=== PATIENT | female | born 1995 | race Caucasian/White ===

== ENCOUNTER 2020-03-29 17:56 | Outpatient (REF) | payer MEDICAID, SELFPAY ==
[2020-03-29 18:36] LABS: HCT 39.8 % (36.0-46.0); HGB 13.4 g/dL (11.2-15.7); MCH 29.6 pg (27.0-33.0); MCHC 33.7 % (32.0-36.0); MCV 87.9 fL (80-95); MPV 9.6 fL (8.0-11.0); Platelet Count 240 10^3/uL (130-400); RBC 4.53 10^6/uL (3.93-5.22); RDW 11.9 % (11.7-14.6); WBC 3.71 10^3/uL (4.4-10.8)
[2020-03-29 19:09] LABS: Ferritin 12 ng/mL (8-252)
== END 2020-03-29 18:16 ==
LOC: NCHCN 17:56
PROVIDERS: Visit Provider Family Medicine
DX: D50.9 Iron deficiency anemia, unspecified (principal)
CPT/HCPCS: 85027; 82728

== ENCOUNTER 2020-04-21 13:39 | Outpatient (REF) | payer MEDICAID, SELFPAY ==
[2020-04-25 17:31] LABS: SARS-CoV-2 RNA Undetected (Undetected); SARS-CoV-2 Specimen Source Nasal
== END 2020-04-21 13:59 ==
LOC: NCHCN 13:39
PROVIDERS: Visit Provider Physician Assistant
DX: Z11.59 Encounter for screening for other viral diseases (principal)
CPT/HCPCS: U0003

== ENCOUNTER 2020-10-15 04:32 | Outpatient (CLI) | payer MEDICAID, SELFPAY ==
--- NOTE | 2020-10-15 09:42 | DI.RAD_ITS ---
Exam(s) XR HIP RT COMPLETE AP PELVIS EXAM: XR HIP RT COMPLETE AP PELVIS CLINICAL HISTORY: RT HIP PAIN, M25.551,FAMILY H/O DYSPLASIA TECHNIQUE: COMPARISON: No exams were available for comparison FINDINGS: Three views were obtained. Cartilaginous joint spaces of the hips appear fairly well maintained. No bony or soft tissue abnormality seen. No evidence of hip dysplasia. IMPRESSION: RADIATION DOSE DELIVERED: Total DLP
== END 2020-10-15 04:52 ==
PROVIDERS: PCP Family Medicine; Visit Provider Family Medicine
DX: M25.551 Pain in right hip (principal); Z82.69 Family history of other diseases of the musculoskeletal system and connective tissue
CPT/HCPCS: 73502

== ENCOUNTER 2021-03-31 02:15 | Outpatient (CLI) | payer MEDICAID, SELFPAY ==
--- NOTE | 2021-03-31 08:00 | DI.RAD_ITS ---
Exam(s) RF JOINT INJECTION FLUORO GUID EXAM: RF JOINT INJECTION FLUORO GUID CLINICAL HISTORY: M25.851,FEMOROACETABULAR IMPINGEMENT RT HIP,FLUORO GUIDED INJECTION TECHNIQUE: Fluoroscopy provided. Radiologist not present. CONTRAST MATERIAL: None COMPARISON: No exams were available for comparison FINDINGS: Fluoroscopy was provided for Dr. Jett during right hip therapeutic injection. Submitted image(s) reveal needle placement at the lateral aspect femoral head. Intra-articular contr ast was injected Please refer to the procedure report for complete details. Cumulative Dose: brina Hand=1.3 mGy IMPRESSION: RADIATION DOSE DELIVERED:
[2021-03-31] MEDS: Bupivacaine 0.5% Pres-Free 10 ML VIAL 6 ML IJ (13:43)
[2021-03-31] MEDS: Omnipaque 300 MG/ML 10 ML BTL IJ (13:44)
[2021-03-31] MEDS: methylPREDNISolone ACETATE 80 MG/ML VIAL IM (13:45)
--- NOTE | 2021-03-31 13:50 | OPPNE_ITS ---
Date of service: 03/31/21 Time of Service: 13:19 Procedure Note Date of procedure: 03/31/21 Procedure: Right Hip Injection with Fluoroscopic Guidance Surgeon/Proceduralist/Physician: Torito Jett Procedure Diagnosis: Right Hip Labral Tear Procedure Indications: Sharon has had persistent pain of the RIGHT hip and groin with a diagnosed labral tear. Noninvasive measures have been tried. To serve as both diagnostic and therapeutic, an injection under fluoroscopy was recommended. I had discussed the risks of the procedure and the patient elected to proceed. Procedure Description: Sharon was greeted in the flouroscopy room. The correct side was identified and the consent was reviewed with the patient and signed. The corina ent was then placed in the supine position on the fluoroscopy table. The RIGHT hip was then prepped with Chloraprep. The anterolateral injection starting point was identiifed by bony landmarks and fluoroscopy. The skin and soft tissue in the tract of the injection was anesthetized with 1% Lidocaine. A spinal needle was then inserted deep into the hip joint at the level of the lateral femoral neck under fluoroscopic guidance. A small amount of Omnipaque solution was injected to confirm intraarticular placement. Once confirmed, the hip was injected with 6cc of 0.5% Bupivicaine and 80mg of Depo-Medrol. A bandaid was placed on the injection site. The procedure was tolerated well.
== END 2021-03-31 02:35 ==
PROVIDERS: PCP Family Medicine; Visit Provider Student in an Organized Health Care Education/Training Program
DX: M25.851 Other specified joint disorders, right hip (principal); M25.551 Pain in right hip; R10.31 Right lower quadrant pain
CPT/HCPCS: 20610; 77002; J1040

== ENCOUNTER 2021-04-01 03:15 | Outpatient (CLI) | payer MEDICAID, SELFPAY ==
[2021-04-01 10:51] LABS: Source Nasal/Nares
[2021-04-01 15:01] LABS: COVID-19 PCR Negative (Negative)
== END 2021-04-01 03:16 | disposition home or self-care (01) ==
PROVIDERS: PCP Family Medicine; Visit Provider Otolaryngology
DX: Z20.822 Contact with and (suspected) exposure to COVID-19 (principal); Z01.818 Encounter for other preprocedural examination
CPT/HCPCS: 87635

== ENCOUNTER 2021-04-04 08:23 | Day surgery (SDC) | payer MEDICAID, SELFPAY ==
[2021-04-04] VITALS (8 sets, daily range): BP systolic 115–129; BP diastolic 85–96; PULSE 58–70; RESP 12–16; TEMP 36–36.5; O2SAT 98–100; BMI 22.0
--- NOTE | 2021-04-04 08:33 | W.ANESPRE ---
General Info Date of Service Date Performed: 04/04/21 Height: 5 ft 8 in Weight: 65.771 kg Body Mass Index (BMI): 22.0 Surgical Procedure: Operation Date: 04/04/21 09:25 Proposed Procedures Side Surgeon p Tonsillectomy & Possible Adenoidectomy Ricky De León MD Meds Allergies and Home Medications Allergies Allergy/AdvReac Type Severity Reaction Status Date / Time No Known Allergies Allergy Verified 04/04/21 07:58 Home Medication Medication Instructions Recorded fluoxetine 40 mg capsule 40 mg PO DAILY cap 03/02/21 Current Visit Medications: Current Medications Generic Name Dose Route Start Last Admin Trade Name Freq PRN Reason Stop Dose Admin Dexamethasone 12 mg 04/04/21 06:00 Dexamethasone 10 Mg/Ml Vial IVP 04/04/21 18:00 NOW TEE Ringer's Solution 1,000 mls @ 80 mls/hr 04/04/21 06:00 IV 05/04/21 23:59 INFUSION TEE Cefazolin Sodium/Dextrose 2 gm in 50 mls @ 100 mls/hr 04/04/21 06:00 Ancef Duplex IVPB 05/04/21 23:59 PREOP TEE Tranexamic Acid 1,000 mg/ 60 mls @ 360 mls/hr 04/04/21 06:00 Sodium Chloride IVPB 04/04/21 18:00 PREOP TEE IV Miscellaneous Supplies 1 each 04/04/21 06:00 Iv Access IV 05/04/21 23:59 DIRECTED TEE Sodium Chloride 0 ml 04/04/21 06:00 Normal Saline Flush 10 Ml Syr IV 05/04/21 23:59 PRN PRN Sodium Chloride 0 ml 04/04/21 06:00 Normal Saline 10 Ml Vial IJ 05/04/21 23:59 DIRECTED PRN Sterile Water 0 ml 04/04/21 06:00 Water,Injection,Sterile 10 Ml Vial IJ 05/04/21 23:59 DIRECTED PRN PFSH Active Problems Active Problems: Problem Status Onset Code Halitosis R19.6 Tonsillolith J35.8 Chronic tonsillitis J35.01 Labral tear of right hip joint S73.191A 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 Hx of wisdom tooth extraction K08.409 Microcytic anemia D50.9 Generalized anxiety disorder F41.1 Tonsillar enlargement J35.1 Medical History Medical History Generalized anxiety disorder 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 Microcytic anemia Patellofemoral syndrome of left knee Tonsillar enlargement Surgical History Surgical History Hx of wisdom tooth extraction Tobacco Smoking/Tobacco Use Status: Never Alcohol Alcohol Intake: current Alcohol intake frequency: holidays/special occasions only Substance Use Substance use: Never Substance use type: marijuana Vital Signs and Lab Results Lab Results Blood Type / Crossmatch: No Data to Display Complete Blood Count: No Data to Display Complete Metabolic Panel: No Data to Display Liver Function Panel: No Data to Display Coagulation Panel: No Data to Display Cardiac Panel: No Data to Display Arterial Blood Gas: No Data to Display Venous Blood Gas: No Data to Display Pancreas Panel: No Data to Display Thyroid Panel: No Data to Display Infectious Disease: Coronavirus (COVID-19)(PCR) Negative (Negative) 04/01/21 09:37 04/01/21 Coronavirus 2019 Source Nasal/Nares 04/01/21 09:37 04/01/21 Blood Cultures: No Data to Display Toxicology Panel: No Data to Display Panel: No Data to Display Anesthesia Assessment and Plan Anesthesia History Personal History: No History of Anesthesia Complications Family History: No Family History of Anesthesia Complications Exercise Tolerance Exercise Tolerance: Metabolic Equivalents>4 Pertinent Negatives Pertinent Negatives: No Symptoms of GERD, No Major Cardiovascular Symptoms or Complaints, No Major Pulmonary Symptoms or Complaints and No History of CVA/TIA Cardiac & Pulmonary Exam Cardiac Exam: Normal S1/S2 Heart Sounds Pulmonary Exam: Clear Bilateral Breath Sounds Implantable Cardiac Device Does patient have a Pacemaker or an ICD?: No Airway Exam Known Difficult Airway: No Mallampati Class: 2 Mouth Opening: Normal (> 3cm) Thyromental Distance: Greater than 3 cm Neck Range of Motion: Full ROM Neck Circumference: Normal Teeth Condition: Normal Dentition ASA Classification ASA Score: ASA 2 Emergency Case?: No NPO Status NPO Status: NPO Clears >2 hours, Solids >8 hours Status Status: Negative HCG Anesthesia Plan Resuscitation Status: Full Code Anesthesia Technique: General Anesthesia Airway Planned: Endotracheal Tube Monitors Used: Standard Monitors
[2021-04-04] MEDS: Lactated Ringers 1,000 ML 80 ML IV (08:50)
[2021-04-04] MEDS: ceFAZolin 2 GM/50 ML BAG IVPB (09:15)
--- NOTE | 2021-04-04 09:33 | TONSIL_PTH ---
PATIENT: Sharon Miller LOC: [facility] U#:[id number] AGE/SX: 25/F ROOM: RE04/04/[address]: Ricky De León MD : 1995 BED: DIS: 04/04/2021 SPEC #: [id number] RECD: 04/04/21 12:28 STATUS: CAROLA REQ #: [id number] LAVERN: 04/04/21 09:[address]: Ricky De León DEPT: Surgical Specimen RECD BY: Allie Espinosa ENTERED: 04/04/21 12:28 SP TYPE: TONSIL OTHR DR: Andrei Vaz Tissues: 1 - TONSIL AGE 17 & OVER 2 - TONSIL AGE 17 & OVER Procedures: GROSS AND MICRO LEVEL 3 Comments: [id number]
--- NOTE | 2021-04-04 10:09 | W.PM.DSUDISC ---
Discharge Plan Disposition Patient Disposition: HOME Condition: Good Discharge Details Reason For Visit: TOnsillectomy Attending Provider: Ricky De León Primary Care Provider: Andrei Vaz Home Meds and New Rx's Prescriptions: No Action fluoxetine [Prozac] 40 mg capsule 40 mg PO DAILY RF: 0 Discharge Instructions Stand Alone Forms: ENT- T&A Instr. De León Referrals: Ricky De León MD [ [facility] STAFF PHYSICIAN] - (Follow-up in 1 month, please call office to schedule before patient departs) Diet:: As Tolerated Discharge Orders Discharge Orders: Discharge Order (Routine); Ordered 04/04/21 Ordered By: Ricky De León
--- NOTE | 2021-04-04 10:11 | ROE_ITS ---
Operative Note Operative Note DATE OF PROCEDURE: 04/04/21 PRE-OP DIAGNOSIS: Chronic tonsillitis with tonsillolith formation POST-OP DIAGNOSIS: same PROCEDURE: Tonsillectomy SURGEON: Ricky De León ANESTHESIA TYPE: General LMA/ETT Refer to Anesthesia Record ESTIMATED BLOOD LOSS: 50 PATHOLOGY: other (Tonsils) Patient was transported to: PACU Patient's condition: stable Indications: Patient with the above problems. Options were explained. She wished to proceed.. Consent was reviewed. H&P was reviewed. Narcotics were discussed, PDMP wasdone Findings: 3+ cryptic tonsils with copious cryptic debris, atrophic tonsils without debris. Palate intact to inspection and Procedure Description: After obtaining an adequate level of general endotracheal anesthesia the patient was positioned in the supine position and prepped and draped in appropriate fashion. Devin-Vikash mouthgag was carefully introduced into the oral cavity and opened to reveal the soft and hard palate, revealing no evidence of an occult cleft. Each tonsil was pulled medially and posteriorly and 0.5% Marcaine with 1-100,000 epinephrine injected in the submucosal plane. Adenoids were examined revealing no significant adenoid. With each tonsil pulled medially and posteriorly, the mucosa along the superior edge of the tonsil was incised using a 12 blade, and a Carmita elevator used to disarticulate the tonsil from the superior tonsillar fossa. Sanchez blade was then used to continue dissection down along the lateral aspect of the tonsil, staying close to the tonsillar capsule. Once the inferior pole it been reached, a tonsillar snare was placed around the base, and the tonsil amputated from the tonsillar fossa. Electrocautery suction tip catheter was then used on 15 W coagulation to achieve relative hemostasis. Devin-Vikash mouth gag was relaxed and reopened revealing no further bleeding. Valsalva did not induce bleeding. The Devin D mariana mouthgag was relaxed and removed and the patient was awakened and extubated by anesthesia and taken to recovery room in stable condition. I was present throughout the entire case
[2021-04-04] MEDS: HYDROmorphone 2 MG/ML VIAL IVP (10:35)
[2021-04-04] MEDS: Normal Saline 10 ML VIAL IJ (10:35)
--- NOTE | 2021-04-04 11:04 | W.ANESPOSTOP ---
Postoperative Evaluation Date, Time and Location Date Performed: 04/04/21 Time Performed: 11:05 Patient Location: Day Surgery Unit Vital Signs Most Recent Imported Vital Signs: Most Recent Vital Signs Temp Pulse Resp BP Pulse Ox 36.3 C L 58 L 12 121/87 98 04/04/21 10:50 04/04/21 10:50 04/04/21 10:50 04/04/21 10:50 04/04/21 10:50 Pain Score Most Recent Pain Score: Most Recent Pain Score Pain Level 5 04/04/21 10:50 Assessment Mental Status: Awake (Alert & Oriented to Patient Baseline) Airway and Respiratory Function: Patent airway with normal (patient baseline) respiratory exam Cardiovascular Function: Hemodynamically Stable Hydration Status: Adequately Hydrated Nausea & Vomiting: No Nausea or Vomiting Pain: Pain is tolerable per patient Peripheral Nerve Block: Patient did not receive a nerve block
== END 2021-04-04 12:11 | disposition home or self-care (01) ==
PROVIDERS: PCP Family Medicine; Visit Provider Otolaryngology
PROC: (CPT 42826; principal; 2021-04-04 09:15)
DX: J35.01 Chronic tonsillitis (principal); J35.8 Other chronic diseases of tonsils and adenoids; F41.1 Generalized anxiety disorder; D50.9 Iron deficiency anemia, unspecified
CPT/HCPCS: 42826; 81025; 88304; J0690; J1100; J2001; J2250; J2405; J2704

== ENCOUNTER 2021-06-08 18:54 | Outpatient (REF) | payer MEDICAID, SELFPAY ==
[2021-06-08 19:52] LABS: Iron 138 ug/dL (50-170); Total Iron Binding Capacity 374 ug/dL (250-450); Transferrin Sat 37 % (15-50)
[2021-06-08 20:05] LABS: Ferritin 24 ng/mL (8-252)
== END 2021-06-08 18:55 | disposition home or self-care (01) ==
LOC: LBN 18:54
PROVIDERS: PCP Family Medicine; Visit Provider Family Medicine
DX: D50.9 Iron deficiency anemia, unspecified (principal)
CPT/HCPCS: 82728; 83540; 83550

== ENCOUNTER 2021-08-30 08:14 | Outpatient (CLI) | payer MEDICAID, SELFPAY ==
--- NOTE | 2021-08-30 08:00 | DI.RAD_ITS ---
Exam(s) XR HIP LT AP LAT ONLY EXAM: XR HIP LT AP LAT ONLY CLINICAL HISTORY: left hip pain. TECHNIQUE: 2D digital imaging was performed of the left hip. Two views were obtained. AP and later al left hip views were obtained. COMPARISON: CR XR HIP RT COMPLETE AP PELVIS from 10/15/2020 FINDINGS: BONES: No acute fracture is present. No bony destructive lesion is seen. JOINTS: No dislocation present. SOFT TISSUE: Normal. IMPRESSION: Unremarkable radiographs of the left hip. DATA REPOSITORY: RADIATION DOSE DELIVERED:
== END 2021-08-30 08:15 | disposition home or self-care (01) ==
LOC: DIORS 08:15
PROVIDERS: PCP Family Medicine; Referring Provider Family Medicine; Visit Provider Student in an Organized Health Care Education/Training Program
DX: M25.552 Pain in left hip; M25.852 Other specified joint disorders, left hip
CPT/HCPCS: 73502

== ENCOUNTER 2021-11-23 01:36 | Outpatient (CLI) | payer MEDICAID, SELFPAY ==
[2021-11-23 12:20] LABS: Source Nasal/Nares
[2021-11-23 16:49] LABS: COVID-19 PCR Negative (Negative)
== END 2021-11-23 01:37 | disposition home or self-care (01) ==
LOC: LBO 01:37
PROVIDERS: PCP Family Medicine; Visit Provider Student in an Organized Health Care Education/Training Program
DX: Z20.822 Contact with and (suspected) exposure to COVID-19 (principal); Z01.818 Encounter for other preprocedural examination
CPT/HCPCS: 87635

== ENCOUNTER 2021-11-25 06:02 | Day surgery (SDC) | payer MEDICAID, SELFPAY ==
--- OUTSIDE RECORDS SUMMARY | 2021-11-25 06:04 | XMS_ITS | Encounter Summary ---
:1995 Author Organization [place] [address] Care Team Providers Name Role Phone Andrei Vaz MD Primary Care Provider Reason for Referral Diagnostic Test (Routine) - Authorized Specialty Diagnoses / Procedures Referred By Contact Refer red To Contact Radiology Diagnoses Hip impingement syndrome, right Shahriar Foote MD [facility] Rad Xray Procedures XR Fluoro Arthrogram Injection Hip Right [address] [facility] [place] [id number] Referral ID Status Reason Start Expiration Visits Visits Date Date Requested Authorized [id number] Authorized Specialty 12/23/2020 06/25/2022 2 2 Service Requested Reason for Visit Diagnostic Test (Routine) - Authorized Specialty Diagnoses / Procedures Referred By Contact Refer red To Contact Radiology Diagnoses Hip impingement syndrome, right Shahriar Foote MD [facility] Rad Xray Procedures XR Fluoro Arthrogram Injection Hip Right [address] [facility] [place] [id number] Referral ID Status Reason Start Expiration Visits Visits Date Date Requested Authorized [id number] Authorized Specialty 12/23/2020 06/25/2022 2 2 Service Requested Encounter Details Date Type Department Care Team Description 02/17/2021 [place] [facility] Foote, Hip impingement [address] [place] [address] Dr GAN syndrome, right [place], [place] [address] [phone] [facility] [phone] [place] [address] Social History Tobacco Use Types Packs/Day Years Used Date Never Assessed Sex Assigned at Date Recorded Not on file documented as of this encounter Discharge Instructions Patient InstructionsCharis Craft - 02/17/2021 1:30 PM EDT Post Injection Patient Instructions You received an injection by JAMEL HOLM in the diagnostic section of radiology. Procedure: RT HIP ARTHROGRAM In the days following the injection: ??? Low intensity movement and exercise of the affected joint. ??? Avoid movements that worsen pain. During the first 48 hours following the injection you may experience mild discomfort at the injection site. If you experience pain or discomfort in the affected area, do the following: ??? Apply cold compress to the affected area. ??? If allowed by your physician, take an anti-inflammatory medication such as ibuprofen (example: Advil), Acetaminophen 9example: Tylenol) or Aspirin. IMPORTANT The risk of infection exists whenever the skin is punctured. The risk can be minimized by keeping the injection site clean. However, be aware of the following signs of an infection: ??? Redness and swelling at the injection site. ??? Increased pain. ??? Fever and/or chills. ??? Decreased range of motion in the joint near the injection site. If you experience any of the signs of infection listed above, telephone the diagnostic section of radiology at [phone]. documented in this encounter Plan of Treatment Not on filedocumented as of this encounter Procedures Procedure Name Priority Date/Time Associated Diagnosis Comme nts XR FLUORO ARTHROGRAM Routine 02/17/2021 1:48 PM Hip impingemen t Results for this INJECTION HIP RIGHT EDT syndrome, right proce dure are in the results section. documented in this encounter Results XR Fluoro Arthrogram Injection Hip Right (02/17/2021 1:48 PM EDT) Anatomical Region Laterality Modality Hip Right Radio Fluoroscopy Specimen (Source) Anatomical Location Collection Method / Collectio n Time Received Time / Laterality Volume Impressions 02/21/2021 12:05 PM EDT Uneventful arthrogram Resident/Fellow: None Attending: None Procedure performed by DONNA Fierro RN Thank you for letting us participate in the care of this patient. ??If you are a health care provider and have any questi ons regarding this report, please contact the number below. ??For patients who have questions please contact the health acute care surgeon that requested your imaging first. ? Narrative 02/21/2021 12:05 PM EDT HISTORY: ??Labral tear, Impingement syndrome, right hip, iliotibial band syndrome., MR arthrogram of right hip bull int space. Arthrogram For Injection Of Contrast TECHNIQUE: After an extensive conversation with the patient regarding risks and benefits, oral and written consent were obtained.? A pre- procedural time-out was performed, including review of the patie nt's relevant electronic medical record and allergies, as [place] [facility] [place]. The patient was positioned supine on the fluoroscopic table. ??The skin overlying the right anterior hip was prepped and d raped in the usual aseptic manner. ??1% Lidocaine was used to achieve local anes thesia. ??Under fluoroscopic guidance, a 22 gauge 3.5 inch spinal needle was adva nced into the joint space. ??After confirmation of intra-articular location of needle tip by using a small injection of the contrast mixture, a tot al of 10 ml of the contrast mixture was injected. All needles removed at end of procedure. FINDINGS: 1. Contrast in right hip joint space 2. Additional post-contrast injection im ages were obtained in different projections. MEDICATIONS: Lidocaine 1% - <5 ml, for s ubcutaneous anesthesia CONTRAST: 20cc mixture of the following were prepa red: Dotarem- 0.2 ml in Normal Saline - 10ml Omnipaque 300 Utilized: 5 mL 1% Lidocaine - 5ml Only 10 ml of this mixture injected into joint space. FLUORO TIME: 0.83 minutes COMPLICATIONS: ??None immediate. POST-PROCEDURE CARE: Instructions regard ing monitor of infection and management of post-procedural pain were reviewed wi th the patient. Procedure Note Jamel Holm APRN - 02/21/2021Forma tting of this note might be different from the original. HISTORY: Labral tear, Impingement syndro me, right hip, iliotibial band syndrome., MR arthrogram of right hip bull int space. Arthrogram For Injection Of Contrast TECHNIQUE: After an extensive conversation with the patient regarding risks and benefits, oral and written consent were obtained.? A pre- procedural time-out was performed, including review of the patie nt's relevant electronic medical record and allergies, as [place] [facility] [place]. The patient was positioned supine on the fluoroscopic table. The skin overlying the right anterior hip was prepped and d raped in the usual aseptic manner. 1% Lidocaine was used to achieve local anes thesia. Under fluoroscopic guidance, a 22 gauge 3.5 inch spinal needle was adva nced into the joint space. After confirmation of intra-articular location of needle tip by using a small injection of the contrast mixture, a tot al of 10 ml of the contrast mixture was injected. All needles removed at end of procedure. FINDINGS: 1. Contrast in right hip joint space 2. Additional post-contrast injection im ages were obtained in different projections. MEDICATIONS: Lidocaine 1% - <5 ml, for s ubcutaneous anesthesia CONTRAST: 20cc mixture of the following were prepa red: Dotarem- 0.2 ml in Normal Saline - 10ml Omnipaque 300 Utilized: 5 mL 1% Lidocaine - 5ml Only 10 ml of this mixture injected into joint space. FLUORO TIME: 0.83 minutes COMPLICATIONS: None immediate. POST-PROCEDURE CARE: Instructions regard ing monitor of infection and management of post-procedural pain were reviewed wi th the patient. IMPRESSION Uneventful arthrogram Resident/Fellow: None Attending: None Procedure performed by DONNA Fierro RN Thank you for letting us participate in the care of this patient. If you are a health care provider and have any questi ons regarding this report, please contact the number below. For patients w ho have questions please contact the health acute care surgeon that requested your imaging first. Shahriar Foote MD IMG FLUORO ORDERABLES documented in this encounter Visit Diagnoses Diagnosis Hip impingement syndrome, right documented in this encounter Administered Medications Inactive Administered Medications - up to 3 most recent administrations Medication Order MAR Action Action Date Dose Rate Site sodium chloride 0.9% 10 mL with Given 02/17/2021 1:30 PM EDT lidocaine 10 mg/mL (1 %) 50 mg, iohexoL (300 mg/mL) 5 mL, gadoterate meglumine 0.5 mmol/mL (376.9 mg/mL) 0.2 mL injection Intra-articular, ONCE, 1 dose, On Margarita 02/17/21 at 1330 documented in this encounter Care Teams Rehabilitation Aide/Scheduler Relationship Specialty Start Date End Date Andrei Vaz MD PCP - General Family Medicine 01/20/21 [address] [place] [id number] documented as of this encounter
--- OUTSIDE RECORDS SUMMARY | 2021-11-25 06:04 | XMS_ITS | Encounter Summary ---
:1995 Author Organization [facility] [place] [address] Care Team Providers Name Role Phone Andrei Vaz MD Primary Care Provider Reason for Referral Diagnostic Test (Routine) - Closed Specialty Diagnoses / Procedures Referred By Contact Refer red To Contact Radiology Diagnoses Tear of left acetabular labrum, initial encounter Shahriar Foote MD [facility] Rad Mri Procedures MRI Arthrogram Hip Left [address] [place] [address] Referral ID Status Reason Start Date Expiration Date Visits V isits Requested Authorized [id number] Closed Specialty 08/31/2021 03/02/2023 1 1 Service Requested Reason for Visit Diagnostic Test (Routine) - Closed Specialty Diagnoses / Procedures Referred By Contact Refer red To Contact Radiology Diagnoses Tear of left acetabular labrum, initial encounter Shahriar Foote MD [facility] Rad Mri Procedures MRI Arthrogram Hip Left [address] [place] [phone] Referral ID Status Reason Start Date Expiration Date Visits V isits Requested Authorized [id number] Closed Specialty 08/31/2021 03/02/2023 1 1 Service Requested Encounter Details Date Type Department Care Team Description 2021 Hospital Encounter MRI at [facility] [place] Shahriar Foote, Tear of left [facility] acetabular labrum, Drive [address] initial encounter TAMIKO Hernadez [id number] [facility] MD [phone] Social History Tobacco Use Types Packs/Day Years Used Date Never Assessed Sex Assigned at Date Recorded Not on file documented as of this encounter Plan of Treatment Not on filedocumented as of this encounter Procedures Procedure Name Priority Date/Time Associated Comments Diagnosis MRI ARTHROGRAM HIP Routine 2021 10:40 AM Tear of left Re sults for this LEFT EDT acetabular labrum, procedure are in initial encounter the result s section. documented in this encounter Results MRI Arthrogram Hip Left (2021 10:40 AM EDT) Anatomical Region Laterality Modality Hip Left Magnetic Resonance Specimen (Source) Anatomical Location Collection Method / Collectio n Time Received Time / Laterality Volume Impressions 2021 10:57 AM EDT 1. ??Anterior superior labral tear characterized by heterogeneously increased signal and irregular morphology. 2. ??Decreased intensity in conspicuity of fluid signal adjacent to the bilateral greater trochanters. This could represen t resolving trochanteric bursitis and/or residual gluteal tendinosis. Thank you for letting us participate in the care of this patient. ??If you are a health care provider and have any questi ons regarding this report, please contact the number below. ??For patients who have questions please contact the health career center director that requested your imaging first. ? Electronically signed by: Adeline Verdin, [facility] ([phone]), at 2021 10:57 AM Narrative 2021 10:57 AM EDT EXAMINATION: MRI ARTHROGRAM HIP LEFT CLINICAL HISTORY: Labral tear, FELICITA (as entered by ordering provider in the order requisition) TECHNIQUE: MRI arthrogram of the left hip was perfo rmed after fluoroscopic guided injection of gadolinium-based contrast into the le ft hip joint space. Large field view sequences through the pelvis include cor onal T1, coronal STIR. Multiple view sequences through the left hip include c oronal T1 with fat saturation, coronal T2 with fat saturation, sagittal proton density with fat saturation, axial proton density with fat saturation, axia l oblique T1 with fat saturation. COMPARISON: Fluoroscopic images from the same day. M R the right hip 02/17/2021 FINDINGS: Right hip: No joint effusion. No acute f racture. Normal alignment. Large field view sequences limit evaluation of the c artilage in labrum. Left hip: No acute fracture. Left hip bull int space is distended by gadolinium-based contrast. There has bee n extravasation of contrast material along the joint capsule anteriorly. Ther e is heterogeneous signal and irregularity of the anterior superior la morris (series 5, image 14), suspicious for anterior-superior labral tear. No hi gh-grade cartilage loss is seen. Normal femoral head-neck offset. Alpha angle me asures less than 55 degrees. Other bones and joints: No acute fractur e. There is heterogeneous marrow signal, though the marrow of the pelvis remains brighter than adjacent muscle. Marrow the lumbar spine is slightly higher than adjacent muscle. These findings could represent red marrow conversion or hemat opoietic marrow. Overall, the heterogeneous marrow signal is similar w hen compared to MR of the right hip from 02/17/2021. Tendons and muscles: The origin of the h amstrings tendons is intact. No high-grade tear of the insertional glute al tendons. The insertional iliopsoas tendons are also intact. Symmetric bulk and signal the visualized muscles. Decreased conspicuity and intensity of f luid signal adjacent to the bilateral greater trochanters, though there is mil d persistence of the signal abnormality which could represent resolving trochant martin bursitis and/or residual gluteal tendinosis. Other soft tissues: Symmetric signal and caliber of the bilateral sciatic nerves. Limited evaluation of intrapelvic organs : Prominent follicles of the right ovary. There is a small amount of free f luid in the right adnexa, likely physiologic in this patient of reproduct gabby age. Procedure Note Ramya Mendez MD - 2021Formattin g of this note might be different from the original. EXAMINATION: MRI ARTHROGRAM HIP LEFT CLINICAL HISTORY: Labral tear, FELICITA (as entered by ordering provider in the order requisition) TECHNIQUE: MRI arthrogram of the left hip was perfo rmed after fluoroscopic guided injection of gadolinium-based contrast into the le ft hip joint space. Large field view sequences through the pelvis include cor onal T1, coronal STIR. Multiple view sequences through the left hip include c oronal T1 with fat saturation, coronal T2 with fat saturation, sagittal proton density with fat saturation, axial proton density with fat saturation, axia l oblique T1 with fat saturation. COMPARISON: Fluoroscopic images from the same day. M R the right hip 02/17/2021 FINDINGS: Right hip: No joint effusion. No acute f racture. Normal alignment. Large field view sequences limit evaluation of the c artilage in labrum. Left hip: No acute fracture. Left hip bull int space is distended by gadolinium-based contrast. There has bee n extravasation of contrast material along the joint capsule anteriorly. Ther e is heterogeneous signal and irregularity of the anterior superior la morris (series 5, image 14), suspicious for anterior-superior labral tear. No hi gh-grade cartilage loss is seen. Normal femoral head-neck offset. Alpha angle me asures less than 55 degrees. Other bones and joints: No acute fractur e. There is heterogeneous marrow signal, though the marrow of the pelvis remains brighter than adjacent muscle. Marrow the lumbar spine is slightly higher than adjacent muscle. These findings could represent red marrow conversion or hemat opoietic marrow. Overall, the heterogeneous marrow signal is similar w hen compared to MR of the right hip from 02/17/2021. Tendons and muscles: The origin of the h amstrings tendons is intact. No high-grade tear of the insertional glute al tendons. The insertional iliopsoas tendons are also intact. Symmetric bulk and signal the visualized muscles. Decreased conspicuity and intensity of f luid signal adjacent to the bilateral greater trochanters, though there is mil d persistence of the signal abnormality which could represent resolving trochant martin bursitis and/or residual gluteal tendinosis. Other soft tissues: Symmetric signal and caliber of the bilateral sciatic nerves. Limited evaluation of intrapelvic organs : Prominent follicles of the right ovary. There is a small amount of free f luid in the right adnexa, likely physiologic in this patient of reproduct gabby age. IMPRESSION 1. Anterior superior labral tear charact erized by heterogeneously increased signal and irregular morphology. 2. Decreased intensity in conspicuity of fluid signal adjacent to the bilateral greater trochanters. This could represen t resolving trochanteric bursitis and/or residual gluteal tendinosis. Thank you for letting us participate in the care of this patient. If you are a health care provider and have any questi ons regarding this report, please contact the number below. For patients w ho have questions please contact the health career center director that requested your imaging first. Electronically signed by: Adeline Verdin, [facility] ([phone]), at 2021 10:57 AM Shahriar Foote MD IMG MRI ORDERABLES documented in this encounter Visit Diagnoses Diagnosis Tear of left acetabular labrum, initial encounter documented in this encounter Care Teams Docent Coordinator Relationship Specialty Start Date End Date Andrei Vaz MD PCP - General Family Medicine 01/20/21 [address] [place] [phone] documented as of this encounter
--- OUTSIDE RECORDS SUMMARY | 2021-11-25 06:04 | XMS_ITS | Encounter Summary ---
:1995 Author Organization [facility] [address] Care Team Providers Name Role Phone Andrei Vaz MD Primary Care Provider Reason for Referral Diagnostic Test (Routine) - Closed Specialty Diagnoses / Procedures Referred By Contact Refer red To Contact Radiology Diagnoses Hip impingement syndrome, right Shahriar Foote MD [facility] Rad Mri Procedures MRI Arthrogram Hip Right [address] [place] [address] Referral ID Status Reason Start Date Expiration Date Visits V isits Requested Authorized [id number] Closed Specialty 12/23/2020 06/25/2022 1 1 Service Requested Reason for Visit Diagnostic Test (Routine) - Closed Specialty Diagnoses / Procedures Referred By Contact Refer red To Contact Radiology Diagnoses Hip impingement syndrome, right Shahriar Foote MD [facility] Rad Mri Procedures MRI Arthrogram Hip Right [address] [place] [address] Referral ID Status Reason Start Date Expiration Date Visits V isits Requested Authorized [id number] Closed Specialty 12/23/2020 06/25/2022 1 1 Service Requested Encounter Details Date Type Department Care Team Description 02/17/2021 Hospital Encounter MRI at [facility] Shahriar Foote, Hip impingement [facility] syndrome, right Drive [address] [facility] [address] [place] [phone] Social History Tobacco Use Types Packs/Day Years Used Date Never Assessed Sex Assigned at Date Recorded Not on file documented as of this encounter Plan of Treatment Not on filedocumented as of this encounter Procedures Procedure Name Priority Date/Time Associated Diagnosis Comme nts MRI ARTHROGRAM HIP Routine 02/17/2021 2:47 PM Hip impingement Results for this RIGHT EDT syndrome, right procedure ar e in the results section. documented in this encounter Results MRI Arthrogram Hip Right (02/17/2021 2:47 PM EDT) Anatomical Region Laterality Modality Hip Right Magnetic Resonance Specimen (Source) Anatomical Location Collection Method / Collectio n Time Received Time / Laterality Volume Impressions 02/17/2021 3:06 PM EDT 1. ??Cam morphology of the proximal right femur with loss of the normal femoral head-neck offset, predominantly along th e superior femoral head-neck junction. This finding may predispose to clinical symptoms of femoral acetabular impingement. 2. ??No discrete labral tear is identifi ed. 3. ??Bilateral early/mild trochanteric b ursitis. Thank you for letting us participate in the care of this patient. ??If you are a health care provider and have any questi ons regarding this report, please contact the number below. ??For patients who have questions please contact the health health care social worker that requested your imaging first. ? Electronically signed by: Adeline Verdin, [facility] ([phone]), at 02/17/2021 3:06 PM Narrative 02/17/2021 3:06 PM EDT EXAMINATION: MRI ARTHROGRAM HIP RIGHT CLINICAL HISTORY: R hip impingement syndrome. Iliotabial b and syndrome.; Labral tear. (as entered by ordering provider in the order requis ition) TECHNIQUE: MR arthrogram of the right hip was perfo rmed after intra-articular instillation of gadolinium-based contrast under fluor oscopic guidance. Large field view sequences through pelvis include coronal T1 and coronal STIR. Small xqzhh-wp-[id number] sequences through the righ t hip include coronal T1 with fat saturation, coronal T2 with fat saturati on, axial proton density with fat saturation, sagittal proton density with fat saturation, axial oblique T1 with fat saturation. COMPARISON: None FINDINGS: Right hip: There is gadolinium-based con trast opacifying the right hip joint space. The ligamentum teres is intact. T he alpha angle measures less than 55 degrees on the axial oblique view, but t here is loss of normal femoral head-neck offset along the superior femoral head n casey junction. No discrete labral tear is identified. No focal cartilage loss. Left hip: No joint effusion. Large field -of-view sequences limit evaluation of the cartilage and labrum. Other bones and joints: No acute fractur e. Somewhat heterogeneous marrow signal, without focal marrow replacing lesion. Tendons and muscles: Origins of the bila teral hamstrings tendons are intact. The insertions of the bilateral iliopsoas te ndons are intact. Insertions of the bilateral gluteal tendons are intact. Th ere is extravasation of contrast within the iliopsoas muscle. Amount of fluid adjacent to the bilatera l greater trochanters, consistent with mild bilateral trochanteric bursitis. Other soft tissues: Normal signal and ca liber of the bilateral sciatic nerves. Limited evaluation of intrapelvic organs : Dominant right ovarian follicle with adjacent pelvic free fluid. Procedure Note Ramya Mendez MD - 02/17/2021Formattin g of this note might be different from the original. EXAMINATION: MRI ARTHROGRAM HIP RIGHT CLINICAL HISTORY: R hip impingement syndrome. Iliotabial b and syndrome.; Labral tear. (as entered by ordering provider in the order requis ition) TECHNIQUE: MR arthrogram of the right hip was perfo rmed after intra-articular instillation of gadolinium-based contrast under fluor oscopic guidance. Large field view sequences through pelvis include coronal T1 and coronal STIR. Small xlsrf-cq-caxb sequences through the righ t hip include coronal T1 with fat saturation, coronal T2 with fat saturati on, axial proton density with fat saturation, sagittal proton density with fat saturation, axial oblique T1 with fat saturation. COMPARISON: None FINDINGS: Right hip: There is gadolinium-based con trast opacifying the right hip joint space. The ligamentum teres is intact. T he alpha angle measures less than 55 degrees on the axial oblique view, but t here is loss of normal femoral head-neck offset along the superior femoral head n casey junction. No discrete labral tear is identified. No focal cartilage loss. Left hip: No joint effusion. Large field -of-view sequences limit evaluation of the cartilage and labrum. Other bones and joints: No acute fractur e. Somewhat heterogeneous marrow signal, without focal marrow replacing lesion. Tendons and muscles: Origins of the bila teral hamstrings tendons are intact. The insertions of the bilateral iliopsoas te ndons are intact. Insertions of the bilateral gluteal tendons are intact. Th ere is extravasation of contrast within the iliopsoas muscle. Amount of fluid adjacent to the bilatera l greater trochanters, consistent with mild bilateral trochanteric bursitis. Other soft tissues: Normal signal and ca liber of the bilateral sciatic nerves. Limited evaluation of intrapelvic organs : Dominant right ovarian follicle with adjacent pelvic free fluid. IMPRESSION 1. Cam morphology of the proximal right femur with loss of the normal femoral head-neck offset, predominantly along th e superior femoral head-neck junction. This finding may predispose to clinical symptoms of femoral acetabular impingement. 2. No discrete labral tear is identified . 3. Bilateral early/mild trochanteric bur sitis. Thank you for letting us participate in the care of this patient. If you are a health care provider and have any questi ons regarding this report, please contact the number below. For patients w ho have questions please contact the health health care social worker that requested your imaging first. Electronically signed by: Adeline Verdin, [facility] ([phone]), at 02/17/2021 3:06 PM Shahriar Foote MD IMG MRI ORDERABLES documented in this encounter Visit Diagnoses Diagnosis Hip impingement syndrome, right documented in this encounter Care Teams Project Management Manager Relationship Specialty Start Date End Date Andrei Vaz MD PCP - General Family Medicine 01/20/21 [address] [place] [phone] documented as of this encounter
--- OUTSIDE RECORDS SUMMARY | 2021-11-25 06:04 | XMS_ITS | Encounter Summary ---
:1995 Author Organization [facility] [place] [address] Care Team Providers Name Role Phone Unavailable Primary Care Provider Unavailable Reason for Visit Diagnostic Test (Routine) - Closed Specialty Diagnoses / Procedures Referred By Contact Refer red To Contact Radiology Diagnoses Hip impingement syndrome, right Shahriar Foote MD [facility] Mri Procedures MRI Arthrogram Hip Right [address] [place] [address] Referral ID Status Reason Start Date Expiration Date Visits V isits Requested Authorized [id number] Closed Specialty 12/23/2020 06/25/2022 1 1 Service Requested Encounter Details Date Type Department Care Team Description 01/07/2021 Hospital Encounter MRI at [facility] [place] Shahriar Foote, Canceled [facility] ([address] [place] TIME) [facility] [address] [place], [place] [phone] [id number] Social History Tobacco Use Types Packs/Day Years [...] who have questions please contact the health nursing care partner that requested your imaging first. ? Narrative 02/17/2021 3:06 PM EDT EXAMINATION: MRI [...] include coronal T1 and coronal STIR. Small nsdns-pf-zjyz sequences through the righ t hip include [...] include coronal T1 and coronal STIR. Small krvmt-bh-gogj sequences through the righ t hip include [...] ho have questions please contact the health nursing care partner that requested your imaging first. Shahriar Foote MD IMG MRI ORDERABLES documented in this encounter Visit Diagnoses Not on filedocumented in this encounter
--- OUTSIDE RECORDS SUMMARY | 2021-11-25 06:04 | XMS_ITS | Encounter Summary ---
:1995 Author Organization [facility] [place] [address] Care Team Providers Name Role Phone Andrei Vaz MD Primary Care Provider Reason for Referral Diagnostic Test (Routine) - Closed Specialty Diagnoses / Procedures Referred By Contact Refer red To Contact Radiology Diagnoses Tear of left acetabular labrum, initial encounter Shahriar Foote MD [facility] Rad Xray Procedures XR Fluoro Arthrogram Injection Hip Left [address] [facility] [place] [id number] Referral ID Status Reason Start Date Expiration Date Visits V isits Requested Authorized [id number] Closed Specialty 08/31/2021 03/02/2023 1 1 Service Requested Reason for Visit Diagnostic Test (Routine) - Closed Specialty Diagnoses / Procedures Referred By Contact Refer red To Contact Radiology Diagnoses Tear of left acetabular labrum, initial encounter Shahriar Foote MD [facility]ray Procedures XR Fluoro Arthrogram Injection Hip Left [address] [facility] [place] [id number] Referral ID Status Reason Start Date Expiration Date Visits V isits Requested Authorized [id number] Closed Specialty 08/31/2021 03/02/2023 1 1 Service Requested Encounter Details Date Type Department Care Team Description 2021 Hospital Encounter XRay at [facility] Shahriar Foote, Tear of left [address] [place] [address] Dr GAN acetabular labrum, [place], [place] [address] initial encounter [id number] [facility] [phone] [place] [address] Social History Tobacco Use Types Packs/Day Years Used Date Never Assessed Sex Assigned at Date Recorded Not on file documented as of this encounter Discharge Instructions Patient InstructionsWeAudrey narayan - 2021 9:22 AM EDT Post Injection Patient Instructions You received an injection by Marta Garcia in the diagnostic section of radiology. Procedure: Left Hip Athrogram In the days following the injection: Low intensity movement and exercise of the affected joint. Avoid movements that worsen pain. During the first 48 hours following the injection you may experience mild discomfort at the injection site. If you experience pain or discomfort in the affected area, do the following: Apply cold compress to the affected area. If allowed by your physician, take an anti-inflammatory medication such as ibuprofen (example: Advil), Acetaminophen (example: Tylenol) or Aspirin. IMPORTANT The risk of infection exists whenever the skin is punctured. The risk can be minimized by keeping the injection site clean. However, be aware of the following signs of an infection: Redness and swelling at the injection site. Increased pain. Fever and/or chills. Decreased range of motion in the joint near the injection site. If you experience any of the signs of infection listed above, telephone the diagnostic section of radiology at [phone]. documented in this encounter Plan of Treatment Not on filedocumented as of this encounter Procedures Procedure Name Priority Date/Time Associated Comments Diagnosis XR FLUORO ARTHROGRAM Routine 2021 9:22 AM Tear of left R esults for this INJECTION HIP LEFT EDT acetabular labrum, pro cedure are in initial encounter the result s section. documented in this encounter Results XR Fluoro Arthrogram Injection Hip Left (2021 9:22 AM EDT) Anatomical Region Laterality Modality Hip Left Radio Fluoroscopy Specimen (Source) Anatomical Location Collection Method / Collectio n Time Received Time / Laterality Volume Impressions 2021 10:54 AM EDT Technically successful left femoral acetabular joint arthrogram Service Provider: ??Marta Garcia PA-C Attending of Record: Dr. Kristi Koo MD Preliminary report signed by: JENNIE Nolasco at 2021 9:37 AM I have personally reviewed the image(s) and the provider's interpretation and agree with the findings, Kristi Koo MD at 2021 10:54 AM Thank you for letting us participate in the care of this patient. ??If you are a health care provider and have any questi ons regarding this report, please contact the number below. ??For patients who have questions please contact the health lawn care professional that requested your imaging first. ? Electronically signed by: Kristi Koo MD, [facility] ([phone]), at 2021 10:54 AM Narrative 2021 10:54 AM EDT EXAMINATION: XR FLUORO ARTHROGRAM INJECTION FEMORAL ACETABULAR JOINT LEFT CLINICAL HISTORY: Labral tear, FELICITA TECHNIQUE: After an extensive conversation with the patient regarding risks and benefits, oral and written consent were obtained.? A pre-procedural time-out was performed, including review of the patie nt's relevant electronic medical record and allergies, as per [facility] protocol. The patient was positioned supine with t he left leg in internal rotation on the fluoroscopic table. ??The skin over the anterior left femoral acetabular joint was prepped and draped in the usual asep tic manner. ??1% Lidocaine was used to achieve local anesthesia. ??Under fluoro scopic guidance, a 22-gauge 3 1/2 inch spinal needle was advanced into the join t space. ??After confirmation of intra-articular location of needle tip b y using a small injection of the contrast mixture, a total of 10 ml of th e contrast mixture was injected. All needles removed at end of procedure. FINDINGS: 1. Contrast in left femoral acetabular j oint space 2. MEDICATIONS: Lidocaine 1% - <5 ml, for s ubcutaneous anesthesia CONTRAST: 20cc mixture of the following were prepa red: Dotarem- 0.2 ml (1:100 dilution) Normal Saline - 10ml Omnipaque 300 - 5 mL 1% Lidocaine - 5ml Only 10 ml of this mixture injected into joint space. FLUORO TIME: 0.13 seconds COMPLICATIONS: ??None immediate. POST-PROCEDURE CARE: Instructions regard ing monitor of infection and management of post-procedural pain were reviewed wi th the patient. Procedure Note Kristi Koo MD - 2021Formatt ing of this note might be different from the original. EXAMINATION: XR FLUORO ARTHROGRAM INJECT ION FEMORAL ACETABULAR JOINT LEFT CLINICAL HISTORY: Labral tear, FELICITA TECHNIQUE: After an extensive conversation with the patient regarding risks and benefits, oral and written consent were obtained.? A pre-procedural time-out was performed, including review of the patie nt's relevant electronic medical record and allergies, as per [facility] protocol. The patient was positioned supine with t he left leg in internal rotation on the fluoroscopic table. The skin over the an terior left femoral acetabular joint was prepped and draped in the usual asep tic manner. 1% Lidocaine was used to achieve local anesthesia. Under fluorosc opic guidance, a 22-gauge 3 1/2 inch spinal needle was advanced into the join t space. After confirmation of intra-articular location of needle tip b y using a small injection of the contrast mixture, a total of 10 ml of th e contrast mixture was injected. All needles removed at end of procedure. FINDINGS: 1. Contrast in left femoral acetabular j oint space 2. MEDICATIONS: Lidocaine 1% - <5 ml, for s ubcutaneous anesthesia CONTRAST: 20cc mixture of the following were prepa red: Dotarem- 0.2 ml (1:100 dilution) Normal Saline - 10ml Omnipaque 300 - 5 mL 1% Lidocaine - 5ml Only 10 ml of this mixture injected into joint space. FLUORO TIME: 0.13 seconds COMPLICATIONS: None immediate. POST-PROCEDURE CARE: Instructions regard ing monitor of infection and management of post-procedural pain were reviewed wi th the patient. IMPRESSION Technically successful left femoral acet abular joint arthrogram Service Provider: Marta Garcia PA-C Attending of Record: Dr. Kristi Koo MD Preliminary report signed by: JENNIE Nolasco at 2021 9:37 AM I have personally reviewed the image(s) and the provider's interpretation and agree with the findings, Kristi Koo MD at 2021 10:54 AM Thank you for letting us participate in the care of this patient. If you are a health care provider and have any questi ons regarding this report, please contact the number below. For patients w ho have questions please contact the health lawn care professional that requested your imaging first. Electronically signed by: Kristi Koo MD, [facility] ([phone]), at 2021 10:54 AM Shahriar Foote MD IMG FLUORO ORDERABLES documented in this encounter Visit Diagnoses Diagnosis Tear of left acetabular labrum, initial encounter documented in this encounter Administered Medications Inactive Administered Medications - up to 3 most recent administrations Medication Order MAR Action Action Date Dose Rate Site gadoterate meglumine (Dotarem) Given 2021 9:30 AM EDT 0.2 mLs (0.5 mMol/mL) injection solution 0-0.2 mL/kg/dose 0-0.2 mL/kg/dose, Intra-articular, ONCE, 1 dose, On Sun09/12/21 at 0930, Radiology Contrast, Routine iohexoL (Omnipaque) (300 mg/mL) solution 0-10 Given 9:24 AM EDT 5 mLs mL 0-10 mL, Intra-articular, ONCE, 1 dose, On Sun09/12/21 at 0930, Warning Vesicant/Irritant Medication , Radiology Contrast, Routine lidocaine (Xylocaine) 1% (10 mg/mL) injection Given 9:23 AM EDT 10 mLs 0-100 mg 0-100 mg (0-10 mL), Intra-articular, ONCE, 1 dose, On Sun09/12/21 at 0930, Radiology Protocol Medication, Routine documented in this encounter Care Teams Mechanical Service Technician Relationship Specialty Start Date End Date Andrei Vaz MD PCP - General Family Medicine 01/20/21 [address] [place] [id number] documented as of this encounter
--- OUTSIDE RECORDS SUMMARY | 2021-11-25 06:04 | XMS_ITS | Clinical Summary ---
:1995 Author Organization [facility] [address] Care Team Providers Name Role Phone Andrei Vaz MD Primary Care Provider Encounters Date Type Specialty Care Team Description 2021 Hospital Encounter Radiology Shahriar Foote MD Tear of left acetabular labrum, initial encounter 2021 Hospital Encounter Radiology Shahriar Foote MD Tear of left acetabular labrum, initial encounter 09/01/2021 Orders Only Radiology Marta Garcia PA from Last 3 Months Social History Tobacco Use Types Packs/Day Years Used Date Never Assessed Sex Assigned at Date Recorded Not on file Plan of Treatment Health Maintenance Due Date Last Done Comments Covid-19 Vaccine (#1) 09/13/1999 HIV screen 2012 Hepatitis C Screening 2012 Tdap adult 2013 Tetanus vaccine 2013 PAP Smear 09/13/2015 Influenza (Flu) vaccine (1 of 1 - Influenza standard 01/26/2021 series) Procedures Procedure Name Priority Date/Time Associated Comments Diagnosis MRI ARTHROGRAM HIP Routine 2021 10:40 AM Tear of left Re sults for this LEFT EDT acetabular labrum, procedure are in initial encounter the result s section. XR FLUORO ARTHROGRAM Routine 2021 9:22 AM Tear of left R esults for this INJECTION HIP LEFT EDT acetabular labrum, pro cedure are in initial encounter the result s section. ORDS - PROVIDER CARE 08/30/2021 12:00 AM SCAN EDT from Last 3 Months Results MRI Arthrogram Hip Left (2021 10:40 [...] who have questions please contact the health managed care provider that requested your imaging first. ? Electronically signed by: Adeline Verdin, [facility] ([phone]), at 2021 10:57 AM Narrative 2021 10:57 [...] ho have questions please contact the health managed care provider that requested your imaging first. Electronically signed by: Adeline Verdin, [facility] ([phone]), at 2021 10:57 AM Shahriar Foote MD IMG MRI ORDERABLES XR Fluoro Arthrogram Injection Hip Left (2021 [...] who have questions please contact the health managed care provider that requested your imaging first. ? Electronically signed by: Kristi Koo MD, [facility] ([phone]), at 2021 10:54 AM Narrative 2021 10:54 AM EDT EXAMINATION: XR FLUORO ARTHROGRAM INJECTION FEMORAL ACETABULAR JOINT LEFT CLINICAL HISTORY: Labral tear, FELICITA TECHNIQUE: After an extensive conversation with the patient regarding risks and benefits, oral and written consent were obtained.? A pre-procedural time-out was performed, including review of the patie nt's relevant electronic medical record and allergies, as per [facility] protocol. The patient was positioned supine with [...] electronic medical record and allergies, as per [facility] protocol. The patient was positioned supine with [...] femoral acet abular joint arthrogram Service Provider: KEITH MontesC Attending of Record: Dr. Kristi Koo MD [...] ho have questions please contact the health managed care provider that requested your imaging first. Electronically signed by: Kristi Koo MD, [facility] ([phone]), at 2021 10:54 AM Shahriar Foote MD IMG FLUORO ORDERABLES SCAN DOC: ORDS - PROVIDER CARE (08/30/2021 12:00 AM EDT) Narrative This result has an attachment that is no t available. Unknown MEDIA MGR SCAN EXT ORDR/RSLT from Last 3 Months Insurance Payer Benefit Plan / Subscriber ID Effective Dates Phone Addre ss Type Group [place]ID [place] [id number] 2020-Presen [phone] [address] [facility] t [address] [place], [place] PL[place] [address] Care Teams Upholstery Department Supervisor Relationship Specialty Start Date End Date Andrei Vaz MD PCP - General Family Medicine 01/20/21 [address] [place] [address]
--- OUTSIDE RECORDS SUMMARY | 2021-11-25 06:04 | XMS_ITS | Encounter Summary ---
:1995 Author Organization [facility] [place] [address] Care Team Providers Name Role Phone Andrei Vaz MD Primary Care Provider Encounter Details Date Type Department Care Team Description 09/01/2021 Orders Only Radiology at [facility] Marta Garcia PA [facility] [place] [address] MUSCULOSKELETAL [phone] RADIOLOGY [place], [place] [address] (Wo rk) Social History Tobacco Use Types Packs/Day Years Used Date Never Assessed Sex Assigned at Date Recorded Not on file documented as of this encounter Plan of Treatment Not on filedocumented as of this encounter Visit Diagnoses Not on filedocumented in this encounter Care Teams Maintenance Instructor Relationship Specialty Start Date End Date Andrei Vaz MD PCP - General Family Medicine 01/20/[address] [place] [phone] documented as of this encounter
--- OUTSIDE RECORDS SUMMARY | 2021-11-25 06:05 | XMS_ITS | Encounter Summary ---
:1995 Author Organization [facility] Address [address] [place] [address] Care Team Providers Name Role Phone Allie Bains MD Primary Care Provider Encounter Details Date Type Department Care Team Description 04/04/2021 Lab Requisition [facility] Ricky De León MD Encounter for other Pathology & HOSPITAL DR general examination Laboratory Medicine [facility] [id number] [place] [address] [place] [address] (Work) [phone] Social History Tobacco Use Types Packs/Day Years Used Date Never Smoker Alcohol Use Standard Drinks/Week Comments Yes 0 (1 standard drink = 0.6 oz pure alcoho l) occassiionally Alcohol Habits Answer Date Recorded How often do you have a drink containing alcohol? Not asked How many drinks containing alcohol do you have on a Not aske d typical day when you are drinking? How often do you have six or more drinks on one Not asked occasion? Comment: occassiionally 02/02/2011 Sex Assigned at Date Recorded Not on file documented as of this encounter Plan of Treatment Not on filedocumented as of this encounter Procedures Procedure Name Priority Date/Time Associated Diagnosis Comme nts SURGICAL PATHOLOGY Today 04/04/2021 9:33 EST Encounter for o ther Results for this general examination procedur e are in the results section. documented in this encounter Results SURGICAL PATHOLOGY (04/04/2021 9:33 EST) Note to Patient The following [facility] MEDICAL pathology results CENTER have been interpreted LABORATORY by your pathologist SERVICES and may be available to you before your health provider has had the opportunity to review them. Please allow time for your provider to receive these results and explore management options, if applicable. Final Diagnosis A. TONSIL, RIGHT, TONSILECTOMY: [facility] DICAL - Tonsil with reactive follicular hyperplasia. CENTER LABORATORY B. TONSIL, LEFT, TONSILECTOMY: SERVICES - Tonsil with reactive follicular hyperplasia. Attestation By the [facility], the attending CENTER signed by [facility] physician certifies LABORATORY Tamara Lamb MD on that they have 1) SERVICES 04/06/2021 at 1538 personally conducted a gross and/or microscopic examination of the described specimen(s), and/or personally interpreted the results of laboratory testing of the described specimen(s), and 2) personally rendered or confirmed the above diagnosis. Clinical History Chronic tonsillitis [facility] SERVICES Gross Description A. [facility] Received in formalin manisha d with proper patient identification (initials P, O) and right tonsil is an ovoid firm strickland palatine tonsil that measures 3.6 x 1.6 x 1.5 cm. The mucosa has prominent crypts CENTER but is otherwise light strickland and generally smooth. Sections reveal a slightly lobular cut surface with no discrete nodules. One union representative section is submitted as A1. LABORATORY SERVICES B. Received in formalin manisha d with proper patient identification (initials P, O) and left tonsil is an ovoid firm strickland palatine tonsil that measures 3.0 x 2.0 x 1.3 cm. The mucosa has prominent crypts but is otherwise light strickland a nd generally smooth. Sections reveal a slightly lobular cut surface with no discrete nodules. One union representative section is submitted as B1. JENNIE CARDONA(ASCP) 04/05/2021 9:33 Performing Lab [facility] HOSP[facility] LAB [facility] SERVICES Scanned Images [facility] Specimen Tissue - Specimen from tonsil (specimen) Tissue specimen (specimen) - Specimen fr om tonsil (specimen) Performing Organization Address City/State/ZIP Code Phon e Number [facility] [address] [place] [address] SERVICES documented in this encounter Visit Diagnoses Diagnosis Encounter for other general examination documented in this encounter Care Teams Fish Hatchery Specialist Relationship Specialty Start Date End Date Allei Bains MD PCP - General 02/02/11 [address] [place] [address] documented as of this encounter
--- OUTSIDE RECORDS SUMMARY | 2021-11-25 06:05 | XMS_ITS | Encounter Summary ---
:1995 Author Organization [facility] Address [address] [place] [address] Care Team Providers Name Role Phone Allie Bains MD Primary Care Provider Encounter Details Date Type Department Care Team Description 04/19/2005 Hospital Encounter [facility] Hospital MD [place] [address] [facility] [address] [place], [place] [address] [place] [phone] (Wo rk) Social History Tobacco Use Types [...] on filedocumented in this encounter Care Teams Customer Experience Intern Relationship Specialty Start Date End Date Allie Bains MD PCP - General 02/02/11 [address] [facility] [place] [address] documented as of this encounter
--- OUTSIDE RECORDS SUMMARY | 2021-11-25 06:05 | XMS_ITS | Clinical Summary ---
:1995 Author Organization [facility] Address [address] [place] [address] Care Team Providers Name Role Phone Allie Bains MD Primary Care Provider Allergies No known active allergies Medications Medication Sig Dispensed Refills Start Date End Date Status ibuprofen (MOTRIN) 200 Take 3 Tabs by 40 Tab 0 02/02/2011 Active mg tablet mouth every 8 hours as needed for Pain. Social History Tobacco Use Types Packs/Day Years [...] Assigned at Date Recorded Not on file Last Filed Vital Signs Vital Sign Reading Time Taken Comments Blood Pressure 110/68 02/02/20111941 EDT Pulse 68 02/02/20111941 EDT Temperature 37.8 ??C (100 ??F) 02/02/20111941 EDT Respiratory Rate 16 02/02/20111941 EDT Oxygen Saturation - - Inhaled Oxygen Concentration - - Weight - - Height - - Body Mass Index - - Plan of Treatment Health Maintenance Due Date Last Done Comments Hepatitis C Screen 1994 COVID-19 Vaccine (1) 2006 Insurance Payer Benefit Plan Subscriber ID Effective Phone Address Typ e / Group Dates MEDICAID ACO MEDICAID ACO [id number] 2021-Pres [phone] [address] Medicaid [place] [address] [place] [address] Care Teams Mental Telepathist Relationship Specialty Start Date End Date Allie Bains MD PCP - General 02/02/11 [address] [facility] [place] [address]
--- OUTSIDE RECORDS SUMMARY | 2021-11-25 06:05 | XMS_ITS | Encounter Summary ---
:1995 Author Organization [facility] Address [address] [place] [address] Care Team Providers Name Role Phone Allie Bains MD Primary Care Provider Encounter Details Date Type Department Care Team Description 06/30/2020 Lab Requisition [facility] Shaun Khan tact with and Pathology & O, PharmD (suspected) exposure Laboratory Medicine - [address] [facility] covid-19 [place], [place] [address] [facility] [address] [place], [place] [id number] Social History Tobacco Use Types Packs/Day Years [...] file documented as of this encounter Discharge Disposition Disposition Code Departure Means Destination Home or Self Care documented in this encounter Plan of Treatment Not on filedocumented as of this encounter Procedures Procedure Name Priority Date/Time Associated Diagnosis Comme nts COVID-19 ACOSTA TEST Today 06/30/2020 11:30 Contact with and R esults for this EST (suspected) exposure procedu re are in to covid-19 the results section. documented in this encounter Results COVID-19 ACOSTA TEST (06/30/2020 11:30 EST) SARS CoV-2 Nasal [facility] Specimen Source LABORATORIES Patient Race Unknown [facility] LABORATORIES Patient Unknown [facility] Ethnicity LABORATORIES SARS-CoV-2 RNA Undetected Undetected [facility] Result Comment: LABORATORIES SARS-CoV-2 RNA absent. This result does not rule out COVID-19 in the patient, as the sensitivity of the andrew t depends on the timing of the specimen collection and t he quality of the specimen. Result should be correlated w ith patient's history and clinical presentation. Method Summary SEE NOTE [facility] Comment: LABORATORIES THFSH- This PCR test uses the TaqPath COVID-19 Combo K it ([employer] and is performed on the [employer] magnetic particle processor and [employer] Fast Dx Real-Time PCR System. It has received Emergency Use Authorization (EUA) by the U.S. Food and Drug Administration. Performance characteristics w ere verified by [facility] in a manner consistent with CL [place] requirements. Fact sheets for this Emergency Use Authorization (EUA) can be found at the following links: https://www.fda.gov/media/516817/download for Health[facility] re Providers https://www.fda.gov/media/928043/download for Patients Test Performed by: [facility] [place] [id number] Hand Stemmer: José Salcedo M.D. Ph.D.; CLIA# [id number] Specimen Swab - Entire nasopharynx (body structur e) Performing Organization Address City/State/ZIP Code Phon e Number [facility]IES [address] [place] [address] documented in this encounter Visit Diagnoses Diagnosis Contact with and (suspected) exposure to covid-19 documented in this encounter Care Teams Radio Antenna Installer Relationship Specialty Start Date End Date Allie Bains MD PCP - General 02/02/11 [address] [place] [address] documented as of this encounter
--- OUTSIDE RECORDS SUMMARY | 2021-11-25 06:05 | XMS_ITS | Encounter Summary ---
:[address] [facility] Address [address] [place] [address] Care Team Providers Name Role Phone Unavailable Primary Care Provider Unavailable Encounter Details Date Type Department Care Team Description 04/24/2007 Before [facility] - José Beck V Converted Visit Raquel bateman Jr., MD ([place]) [id number] [place] [phone] (Wo rk) Social History Tobacco Use Types Packs/Day Years Used Date Never Assessed Sex Assigned at Date Recorded Not on file documented as of this encounter Consult Notes José Beck MD - 04/04/2009 0210 EST CONSULTATION - 04/24/2007 April 24, 2007 Allie Bains M.D. [facility] [address] [place] [address] Bains, [facility]. She plans to spend 2 months traveling through [facility], departing in June 2007. She is already well immunized having completed the yellow feverand hepatitis A virus immunization series. Her typhoid vaccine, however, has . We opted to give her a prescription for the oral typhoid vaccine. Additionally, she was given a prescription for mefloquine for malaria chemoprophylaxis, as her mother is concerned that she does not like to take medications and this will be the easiest way to provide her malaria chemoprophylaxis. Thank you for allowing me to see this patient. If you have any questions, please feel free to contact me at any time. Sincerely, Signed by José Beck MD 05/02/2007 13:18 José Beck MD Division of Pediatric Infectious Disease - José Beck MD A - vernell Job ID: [id number] Doc ID: [id number] cc: Allie Bains MD documented in this encounter Plan of Treatment Not on filedocumented as of this encounter Visit Diagnoses Not on filedocumented in this encounter
--- OUTSIDE RECORDS SUMMARY | 2021-11-25 06:05 | XMS_ITS | Encounter Summary ---
:1995 Author Organization [facility] Address [address] [place] [address] Care Team Providers Name Role Phone Allie Bains MD Primary Care Provider Encounter Details Date Type Department Care Team Description 06/23/2020 Lab Requisition [facility] Shaun Khan for Pathology & O, PharmD screening for Laboratory Medicine - [address] [facility] [place], [place] 111 [facility] [id number] [place], [place] [id number] Social History Tobacco Use Types Packs/Day Years [...] Diagnosis Comme nts COVID-19 ACOSTA TEST Today 06/23/2020 11:30 Encounter for Resu lts for this EST screening for procedure are in COVID-19 the results section. documented in this encounter Results COVID-19 ACOSTA TEST (06/23/2020 11:30 EST) SARS CoV-2 Nasopharynx [facility] Specimen Source LABORATORIES Patient Race Unknown [facility] LABORATORIES Patient Unknown [facility] Ethnicity LABORATORIES SARS-CoV-2 RNA Undetected Undetected [facility] Result Comment: LABORATORIES SARS-CoV-2 RNA absent. This result does not rule out COVID-19 in the patient, as the sensitivity of the andrew t depends on the timing of the specimen collection and t he quality of the specimen. Result should be correlated w ith patient's history and clinical presentation. Method Summary SEE NOTE [facility] Comment: LABORATORIES THFSH- This PCR test uses the TaqPath COVID-19 Combo K it ([employer] and is performed on the 1.[employer] Technology magnetic particle processor and Airphrame Fast Dx Real-Time PCR System. It has received Emergency Use Authorization (EUA) by the U.S. Food and Drug Administration. Performance characteristics w ere verified by [facility] in a manner consistent with CL IA requirements. Fact sheets for this Emergency Use Authorization (EUA) can be found at the following links: https://www.fda.gov/media/523208/download for Healthca re Providers https://www.fda.gov/media/017046/download for Patients Test Performed by: [facility] [place] [id number] Wharf Laborer: José Salcedo M.D. 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
--- OUTSIDE RECORDS SUMMARY | 2021-11-25 06:05 | XMS_ITS | Encounter Summary ---
:1995 Author Organization [facility] Address [address] [place] [address] Care Team Providers Name Role Phone Allie Bains MD Primary Care Provider Encounter Details Date Type Department Care Team Description 07/07/2020 Lab Requisition [facility] Shaun Khan tact with and Pathology & O, PharmD (suspected) exposure Laboratory Medicine [address] [facility] to other viral - [place], [place] communicable diseases [address] [facility] [address] [place], [place] [address] Social History Tobacco Use Types Packs/Day Years [...] Priority Date/Time Associated Diagnosis Comme nts COVID-19 TEST [facility] Today 07/07/2020 11:15 Contact with and LAB PCR EST (suspected) exposure to other viral communicable diseases COVID-19 TESTING Today 07/07/2020 11:15 Contact with and Res ults for this EST (suspected) exposure procedu re are in to other viral the results communicable diseases sectio n. documented in this encounter Results COVID-19 TEST [facility] PCR (07/07/2020 11:15 EST) Specimen Swab - Nasal (qualifier value) Performing Organization Address City/State/ZIP Code Phon e Number [facility] [address] [place] [address] SERVICES COVID-19 TESTING (07/07/2020 11:15 EST) COVID-19 rt-PCR Negative Negative [facility] Result Comment: CENTER LABORATORY This test has not been FDA c leared or approved. This test has been authorized by FDA under an EUA for use by authorized laboratories. This test has been authorized only for detection of nucleic acid fro SERVICES m 2019-nCoV, not for any oth er viruses or pathogens. This test is only authorized for the duration of the declaration that circumstances exist justifying the authorization of emergency use of in vitro d iagnostic tests for detectio n and/or diagnosis of 2019-nCoV under section 564(b)(1) of Act, 21 U.S.C ?? 360bbb-3(b) (1), unless the authorization is terminated or revoked sooner. Negative results do not prec lude 2019-nCoV infection and should not be used as the sole basis for treatment or other patient management decisions. Negative results must be combined with clinical observa tions, patient history, and epidemiological informatio n. This test was developed and its performance characteristics determined by [facility]. It has not been cleared or approved by the US Food and Drug Administration. FDA does not require this test to go through premarket FDA review. This t est is used for clinical purposes. It should not be regarded as investigational or for research. This laboratory is certified under the Clinical Laboratory Improvement Amendm ents (CLIA) as qualified to perform high complexity clinical laboratory testing. This test is based on the CD C COVID-19 Emergency Use Authorization (EUA) assay, with minor modification as defined by the FDA Performed on the [employer] Ino 7 Flex RT-PCR System. Performing Lab [facility] SERVICES Specimen Swab - Nasal (qualifier value) Performing Organization Address City/State/ZIP Code Phon e Number [facility] [address] [place] [address] SERVICES documented in this encounter Visit Diagnoses Diagnosis Contact with and (suspected) exposure to other viral communicable diseases documented in this encounter Care Teams Vocational Ed Instructor Relationship Specialty Start Date End Date Allie Bains MD PCP - General 02/02/11 [address] [facility] [address] documented as of this encounter
--- OUTSIDE RECORDS SUMMARY | 2021-11-25 06:05 | XMS_ITS | Encounter Summary ---
:1995 Author Organization [facility] Address [address] [place] [address] Care Team Providers Name Role Phone Norberto Adame MD Primary Care Provider Reason for Visit Reason Comments Pharyngitis Encounter Details Date Type Department Care Team Description 02/02/2011 Hospital Encounter [facility] Belinda Calabrese MD [address] [place] [address] Sore throat; Urgent Care - Yashira Martinez, Provider, Viral syndrome [address] [id number] Social History Tobacco Use Types Packs/Day Years [...] on file documented as of this encounter Last Filed Vital Signs Vital Sign Reading Time Taken Comments Blood Pressure 110/68 02/02/20111941 EDT Pulse 68 02/02/20111941 EDT Temperature 37.8 ??C (100 ??F) 02/02/20111941 EDT Respiratory Rate 16 02/02/20111941 EDT Oxygen Saturation - - Inhaled Oxygen Concentration - - Weight - - Height - - Body Mass Index - - documented in this encounter Discharge Instructions AttachmentsThe following attachments cannot be sent through Care Everywhere.SORE THROAT IN ADULTS: AFTER YOUR VISIT (EQUATORIAL GUINEAN)documented in this encounter Medications at Time of Discharge Medication Sig Dispensed Refills Start Date End Date ibuprofen (MOTRIN) 200 mg Take 3 Tabs by mouth 40 Tab 0 02/02/2011 tablet every 8 hours as needed for Pain. documented as of this encounter Ordered Prescriptions Prescription Sig Dispensed Refills Start Date End Date ibuprofen (MOTRIN) 200 mg Take 3 Tabs by mouth 40 Tab 0 02/02/2011 tablet every 8 hours as needed for Pain. documented in this encounter Discharge Disposition Disposition Code Departure Means Destination Home or Self Care documented in this encounter ED Notes Braxton Calabrese Ying - 02/03/2011 1101 EDT DOS: 02/02/2011 Chief Complaint Patient presents with ??? Pharyngitis The patient is a 15 y.o. female who presents today with Pharyngitis HPI Comments: This pleasant young woman presents accompanied by her mother, who is a nurse practitioner student. Patient has sore throat and fever as outlined below. No personal or significant family history of seasonal allergies or reactive airway disease. The history is provided by the patient, a parent and medical records. Pharyngitis This is a new problem. The current episode started yesterday. The problem has been gradually worsening. The maximum temperature recorded prior to her arrival was 100 to 100.9 F. The fever has been present for less than 1 day. Associated symptoms include swollen glands and trouble swallowing. Pertinentnegatives include no diarrhea, no vomiting, no congestion, no ear discharge, no ear pain, no headaches, no plugged ear sensation, no shortness of breath, no stridor, no stiff neck and no cough. She hashad no exposure to strep or mono. Exposure to: patient is public school.. She has tried NSAIDs for the symptoms. The treatment provided moderate relief. Review of Systems Constitutional: Positive for fever and fatigue. Negative for unexpected weight change. HENT: Positive for sore throat and trouble swallowing. Negative for ear pain, congestion, rhinorrhea, voice change, sinus pressure and ear discharge. Eyes: Negative. Respiratory: Negative for cough, shortness of breath and stridor. Cardiovascular: Negative. Gastrointestinal: Negative for vomiting, abdominal pain, diarrhea and abdominal distention. Genitourinary: Negative. Musculoskeletal: Negative. Skin: Negative. Negative for rash. Neurological: Negative for dizziness, light-headedness and headaches. Hematological: Positive for adenopathy. Does not bruise/bleed easily. Psychiatric/Behavioral: Negative. No current facility-administered medications on file. Current outpatient prescriptions Medication Sig Dispense Refill ??? ibuprofen (MOTRIN) 200 mg tablet Take 3 Tabs by mouth every 8 hours as needed for Pain. 40 Tab 0 No Known Allergies History reviewed. No pertinent past medical history. History Substance Use Topics ??? Smoking status: Never Smoker ??? Smokeless tobacco: Not on file ??? Alcohol Use: Yes occassiionally History reviewed. No pertinent family history. BP 110/68 Pulse 68 Temp(Src) 100 ??F (37.8 ??C) (Temporal) Resp 16 Physical Exam Nursing note and vitals reviewed. Constitutional: She is oriented to person, place, and time. She appears well- developed and well-nourished. No distress. HENT: Head: Normocephalic and atraumatic. Right Ear: Hearing, tympanic membrane, external ear and ear canal normal. Left Ear: Hearing, tympanic membrane, external ear and ear canal normal. Nose: Nose normal. Right sinus exhibits no maxillary sinus tenderness and no frontal sinus tenderness. Left sinus exhibits no maxillary sinus tenderness and no frontal sinus tenderness. Mouth/Throat: Uvula is midline and mucous membranes are normal. Posterior oropharyngeal edema and posterior oropharyngeal erythema present. No oropharyngeal exudate or tonsillar abscesses. Eyes: Conjunctivae and extraocular motions are normal. Pupils are equal, round, and reactive to light. No scleral icterus. Neck: Normal range of motion. Neck supple. Thyromegaly present. Cardiovascular: Normal rate, regular rhythm and normal heart sounds. No murmur heard. Pulmonary/Chest: Effort normal and breath sounds normal. Abdominal: Soft. Bowel sounds are normal. Musculoskeletal: She exhibits no edema. Lymphadenopathy: She has no cervical adenopathy. Neurological: She is alert and oriented to person, place, and time. She exhibits normal muscle tone.Coordination normal. Skin: Skin is warm and dry. No rash noted. She is not diaphoretic. Psychiatric: She has a normal mood and affect. Her behavior is normal. Judgment and thought content normal. Consult orders: None PCP: NORBERTO ADAME MD Results for orders placed during the hospital encounter of 02/02/11 RAPID STREP Component Value Range ??? Rapid Strep A Screen Value: Neg Performed at [facility], [place], [place] Radiology orders: None Procedures Course: A medical screening exam was performed. Check throat culture. Discussed my impression as well as differential diagnosis. Continue supportive care. We will call ifculture comes back positive. Followup with primary care provider if not resolving over the next 5-7 days, sooner if worsening. Disposition: Discharged The patient's pain was managed to an adequate level weighing risk vs. benefit of further medications. Upon departure from the [facility], the patient's pain was 5 on a zero to ten scale. Condition at departure from the [facility]: Stable 1. Sore throat (462AA) RAPID STREP, PHARYNGITIS CULTURE, RAPID STREP, PHARYNGITIS CULTURE 2. Viral syndrome (079.99B) No supervision required. [facility] 02/03/2011 11:01 Tess Metzger - 02/02/2011 194 EDT Patient said her throat has been sore since yesterday. documented in this encounter Miscellaneous Notes Scanned Note-Null - Bluing Oven Tender, Scan - 02/02/2011 0000 EDT Scanned Note-Null - Bluing Oven Tender, Scan - 02/02/2011 0000 EDT documented in this encounter Plan of Treatment Not on filedocumented as of this encounter Procedures Procedure Name Priority Date/Time Associated Diagnosis Comme nts GROUP A STREP STAT 02/02/2011 19:45 Sore throat Results fo r this CULTURE EDT procedure are i n the results section. RAPID STREP STAT 02/02/2011 19:45 Sore throat Results for this EDT procedure are i n the results section. documented in this encounter Results PHARYNGITIS CULTURE (02/02/2011 19:45 EDT) Pathologist [facility] Throat [facility] Description Performed at [facility], [place], [place] LAB Result No group A beta [facility] streptococci LAB isolated. Usual trevon-pharyngeal ariel. Report Status Final [facility] 02/04/2011 LAB Specimen Other (qualifier value) Performing Organization Address City/State/ZIP Code Phon e Number [facility] [address] [place] [address] SERVICES [facility] [address] [place] [address] RAPID STREP (02/02/2011 19:45 EDT) Rapid Strep A Neg [facility] LAB Screen Performed at [place], [place] Specimen Other (qualifier value) Performing Organization Address City/State/ZIP Code Phon e Number [facility] [address] [place] [address] SERVICES [facility] [address] [place] [address] documented in this encounter Visit Diagnoses Diagnosis Sore throat Acute pharyngitis Viral syndrome Unspecified viral infection, in conditio ns classified elsewhere and of unspecified site documented in this encounter Care Teams Laborer [employer] Relationship Specialty Start Date End Date Norberto Adame MD PCP - General 02/02/11 [address] [place] [facility] [place] [address] documented as of this encounter
[2021-11-25 06:23] VITALS: BP 106/77; PULSE 62; RESP 16; TEMP 36.6; O2SAT 100
--- NOTE | 2021-11-25 06:34 | W.ANESPRE ---
General Info Date of Service Date Performed: 11/25/21 Height: 5 ft 8 in Weight: 65.4 kg Body Mass Index (BMI): 21.9 Surgical Procedure: Operation Date: 11/25/21 07:50 Proposed Procedure Side Surgeon p Hip Arthroscopy w/Labral Repair and Femoroplasty Left Shahriar Foote MD Meds Allergies and Home Medications Allergies Allergy/AdvReac Type Severity Reaction Status Date / Time No Known Allergies Allergy Verified 11/25/21 06:28 Home Medication Medication Instructions Recorded Lactobacillus acidophilus 10 10,000 mmu cells PO DAILY 11/25/21 billion cell capsule (Probiotic) multivitamin 1 tab PO DAILY 11/25/21 Current Visit Medications: Current Medications Generic Name Dose Route Start Last Admin Trade Name Freq PRN Reason Stop Dose Admin Ringer's Solution 1,000 mls @ 100 mls/hr 11/25/21 06:00 IV 12/24/21 23:59 INFUSION TEE Cefazolin Sodium/Dextrose 2 gm in 50 mls @ 100 mls/hr 11/25/21 06:00 Ancef Duplex IVPB 11/25/21 16:00 PREOP TEE IV Miscellaneous Supplies 1 each 11/25/21 06:00 Iv Access IV 12/24/21 23:59 DIRECTED TEE Sodium Chloride 0 ml 11/25/21 06:00 Normal Saline Flush 10 Ml Syr IV 12/24/21 23:59 PRN PRN Sodium Chloride 0 ml 11/25/21 06:00 Normal Saline 10 Ml Vial IJ 12/24/21 23:59 DIRECTED PRN Sterile Water 0 ml 11/25/21 06:00 Water,Injection,Sterile 10 Ml Vial IJ 12/24/21 23:59 DIRECTED PRN PFSH Active Problems Active Problems: Problem Status Onset Code Labral tear of left hip joint S73.192A Sacroiliac joint pain M53.3 Labral tear of right hip joint S73.191A 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 Medical History Medical History Chronic tonsillitis Generalized anxiety disorder Halitosis 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 Microcytic anemia Patellofemoral syndrome of left knee Tonsillar enlargement Tonsillolith Surgical History Surgical History Hx of tonsillectomy 04/04/2021 Hx of wisdom tooth extraction Tobacco Smoking/Tobacco Use Status: Never Alcohol Alcohol Intake: never Substance Use Substance use: Rarely Substance use type: marijuana Vital Signs and Lab Results Vital Signs Most Recent Vital Signs in EMR: Most Recent Vital Signs Temp Pulse Resp BP Pulse Ox 36.6 C 62 16 106/77 100 11/25/21 06:23 11/25/21 06:23 11/25/21 06:23 11/25/21 06:23 11/25/21 06:23 Lab Results Blood Type / Crossmatch: No Data to Display Complete Blood Count: No Data to Display Complete Metabolic Panel: No Data to Display Liver Function Panel: No Data to Display Coagulation Panel: No Data to Display Cardiac Panel: No Data to Display Arterial Blood Gas: No Data to Display Venous Blood Gas: No Data to Display Pancreas Panel: No Data to Display Thyroid Panel: No Data to Display Infectious Disease: Coronavirus (COVID-19)(PCR) Negative (Negative) 11/23/21 09:02 Coronavirus 2019 Source Nasal/Nares 11/23/21 09:02 Blood Cultures: No Data to Display Toxicology Panel: No Data to Display Panel: No Data to Display Anesthesia Assessment and Plan Anesthesia History Personal History: No History of Anesthesia Complications Family History: No Family History of Anesthesia Complications Exercise Tolerance Exercise Tolerance: Metabolic Equivalents>4 Pertinent Negatives Pertinent Negatives: No Symptoms of GERD, No Major Cardiovascular Symptoms or Complaints, No Major Pulmonary Symptoms or Complaints and No History of CVA/TIA Cardiac & Pulmonary Exam Cardiac Exam: Normal S1/S2 Heart Sounds Pulmonary Exam: Clear Bilateral Breath Sounds Implantable Cardiac Device Does patient have a Pacemaker or an ICD?: No Airway Exam Known Difficult Airway: No Mallampati Class: 2 Mouth Opening: Normal (> 3cm) Thyromental Distance: Greater than 3 cm Neck Range of Motion: Full ROM Neck Circumference: Normal Teeth Condition: Normal Dentition ASA Classification ASA Score: ASA 2 Emergency Case?: No NPO Status NPO Status: NPO Clears >2 hours, Solids >8 hours Status Status: Negative HCG Anesthesia Plan Resuscitation Status: Full Code Anesthesia Technique: General Anesthesia Airway Planned: Endotracheal Tube Pain Management: Surgeon and patient request nerve block (BRIDGETTE) Monitors Used: Standard Monitors
[2021-11-25] MEDS: Lactated Ringers 1,000 ML 100 ML IV (07:08)
[2021-11-25 07:58] LABS: HCG Quant, Pregnancy 5708 mIU/mL (1-3)
--- NOTE | 2021-11-25 08:09 | PDOC.ANES ---
Date of service: 11/25/21 Time of Service: 08:09 Anesthesia Note Report Anesthesia Note: Made aware of positive qualitative HCG for this patient at 0659 this morning, discussed with Anders Camilo. Placed order for serum HCG, notified Willy Foote and consulted with Abdirahman Hendrix from the MEDICAL ASSISTANT PER DIEM service. In consultation with Abdirahman Hendrix it was her direct recommendation to postpone this elective surgery. Discussed with patient and family member, they expressed their wish to proceed. I recommended further discussion and awaiting serum HCG results. I further discussed case with Abdirahman Hendrix and Eileen Darnell, both of the same service, and they both reinforced that this elective case should be postponed until the current process is finalized. Serum HCG was >5000. I discussed the recommendations by our consulting providers with the patient and informed her that we are postponing the case. She expressed her disappointment. I gave her and her family member time to process and ask questions. All questions answered to the best of my ability. I referred the patient to [facility] or her prior provider to follow up on the potential pregnancys process. Once the process has finalized I invited her to reschedule her surgery and we will be more than happy to get that done for her in the future.
--- NOTE | 2021-11-25 08:31 | W.PM.DSUDISC ---
Discharge Plan Disposition Patient Disposition: HOME Condition: Stable Discharge Details Reason For Visit: Left hip surgery Attending Provider: Shahriar Foote Primary Care Provider: Andrei Vaz Home Meds and New Rx's Prescriptions: Continued multivitamin Tablet 1 tab PO DAILY Probiotic 10 billion cell Capsule 10,000 mmu cells PO DAILY Discharge Instructions Additional Instructions: Left hip arthroscopy postponed today due to possible continued after . Please see plate grinder Dr. Rosita Darnell next week to review options. My office will tentatively plan on surgery with me on 12/09/21. Referrals: Rosita Darnell DO [OSTEOPATHIC DOCTOR] - (Positive test after ) Shahriar Foote MD [ [facility]FF PHYSICIAN] - DS: Diagnosis Discharge Diagnosis (1) Labral tear of left hip joint: Status: Acute (2) Positive test: Status: Acute
== END 2021-11-25 06:03 | disposition home or self-care (01) ==
PROVIDERS: Nurse Anesthetist, Certified Registered; PCP Family Medicine; Visit Provider Student in an Organized Health Care Education/Training Program
DX: S73.192A Other sprain of left hip, initial encounter (principal); Z32.01 Encounter for pregnancy test, result positive; Z53.09 Procedure and treatment not carried out because of other contraindication; X58.XXXA Exposure to other specified factors, initial encounter
CPT/HCPCS: 29916; 29914; 36415; 84702; J0171; J1100; J2405; J2704

== ENCOUNTER 2021-12-01 19:09 | Outpatient (CLI) | payer MEDICAID, SELFPAY ==
[2021-12-01 14:07] LABS: HCG Quant, Pregnancy 13362 mIU/mL (1-3)
== END 2021-12-01 19:10 | disposition home or self-care (01) ==
LOC: LBO 19:10
PROVIDERS: PCP Family Medicine; Visit Provider Obstetrics & Gynecology
DX: Z32.01 Encounter for pregnancy test, result positive (principal); Z64.0 Problems related to unwanted pregnancy
CPT/HCPCS: 36415; 84702

== ENCOUNTER 2021-12-05 03:33 | Outpatient (CLI) | payer MEDICAID, SELFPAY ==
[2021-12-05 15:50] LABS: Source Nasal/Nares
[2021-12-05 16:18] LABS: Abs Immature Grans 0.01 10^3/uL (0.0-0.06); Absolute Basophil Count 0.03 10^3/uL (0.0-0.2); Absolute Eosinophil Count 0.07 10^3/uL (0.0-0.7); Absolute Lymphocyte Count 1.77 10^3/uL (1.2-3.4); Absolute Monocyte Count 0.35 10^3/uL (0.1-0.8); Absolute Neutrophil Count 2.61 10^3/uL (1.2-6.7); Basophils % 0.6; Eosinophils % 1.4; HGB 12.4 g/dL (11.2-15.7); Immature Grans % 0.2; Lymphocytes % 36.6; MCH 28.6 pg (27.0-33.0); MCHC 34.4 % (32.0-36.0); MCV 83 fL (80-95); MPV 9.2 fL (8.0-11.0); Monocytes % 7.2; Platelet Count 204 10^3/uL (130-400); RBC 4.33 10^6/uL (3.93-5.22); RDW 11.3 % (11.7-14.6); RDW-SD 34.5 fL; WBC 4.84 10^3/uL (4.4-10.8)
[2021-12-05 20:59] LABS: COVID-19 PCR Negative (Negative)
== END 2021-12-05 03:34 | disposition home or self-care (01) ==
LOC: LBO 03:33
PROVIDERS: PCP Family Medicine; Visit Provider Obstetrics & Gynecology
DX: O03.4 Incomplete spontaneous abortion without complication; Z20.822 Contact with and (suspected) exposure to COVID-19; Z01.812 Encounter for preprocedural laboratory examination; Z01.818 Encounter for other preprocedural examination
CPT/HCPCS: 36415; 86850; 86900; 86901; 87635; 85025

== ENCOUNTER 2021-12-05 03:34 | Outpatient (CLI) | payer MEDICAID, SELFPAY | END 2021-12-05 03:35 | disposition home or self-care (01) | LOC: LBO 03:34 | PROVIDERS: PCP Family Medicine; Visit Provider Obstetrics & Gynecology ==

== ENCOUNTER 2021-12-07 08:00 | Day surgery (SDC) | payer MEDICAID, SELFPAY ==
[2021-12-07 08:15] VITALS: BP 103/75; PULSE 68; RESP 18; TEMP 36.6; O2SAT 99
[2021-12-07] MEDS: DOXYCYCLINE 100 MG in Normal Saline 100 ML IVPB (08:35)
[2021-12-07] MEDS: Lactated Ringers 1,000 ML 125 ML IV (08:35)
--- NOTE | 2021-12-07 09:01 | W.ANESPRE ---
General Info Date of Service Date Performed: 12/07/21 Height: 5 ft 8 in Weight: 64.3 kg Body Mass Index (BMI): 21.5 Surgical Procedure: Operation Date: 12/07/21 10:25 Proposed Procedure Side Surgeon p D & C Suction Completion Rosita Darnell DO Meds Allergies and Home Medications Allergies Allergy/AdvReac Type Severity Reaction Status Date / Time No Known Allergies Allergy Verified 12/07/21 08:14 Home Medication Medication Instructions Recorded Lactobacillus acidophilus 10 10,000 mmu cells PO DAILY 11/25/21 billion cell capsule (Probiotic) multivitamin 1 tab PO DAILY 11/25/21 Current Visit Medications: Current Medications Generic Name Dose Route Start Last Admin Trade Name Freq PRN Reason Stop Dose Admin Ringer's Solution 1,000 mls @ 125 mls/hr 12/07/21 06:00 12/07/21 08:35 IV 01/05/22 23:59 125 mls/hr INFUSION TEE Administration Doxycycline Hyclate 100 mg/ 100 mls @ 100 mls/hr 12/07/21 06:00 12/07/21 08:35 Sodium Chloride IVPB 12/07/21 23:59 100 mls/hr PREOP TEE Administration IV Miscellaneous Supplies 1 each 12/07/21 06:00 Iv Access IV 01/05/22 23:59 DIRECTED TEE Sodium Chloride 0 ml 12/07/21 06:00 Normal Saline Flush 10 Ml Syr IV 01/05/22 23:59 PRN PRN Sodium Chloride 0 ml 12/07/21 06:00 Normal Saline 10 Ml Vial IJ 01/05/22 23:59 DIRECTED PRN Sterile Water 0 ml 12/07/21 06:00 Water,Injection,Sterile 10 Ml Vial IJ 01/05/22 23:59 DIRECTED PRN PFSH Active Problems Active Problems: Problem Status Onset Code Positive test Z32.01 Labral tear of left hip joint S73.192A Sacroiliac joint pain M53.3 Labral tear of right hip joint S73.191A 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 Medical History Medical History Chronic tonsillitis Generalized anxiety disorder Halitosis 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 Microcytic anemia Patellofemoral syndrome of left knee Tonsillar enlargement Tonsillolith Surgical History Surgical History Hx of tonsillectomy 04/04/2021 Hx of wisdom tooth extraction Tobacco Smoking/Tobacco Use Status: Never Alcohol Alcohol Intake: never Substance Use Substance use: Rarely Substance use type: marijuana Vital Signs and Lab Results Vital Signs Most Recent Vital Signs in EMR: Most Recent Vital Signs Temp Pulse Resp BP Pulse Ox 36.6 C 68 18 103/75 99 12/07/21 08:15 12/07/21 08:15 12/07/21 08:15 12/07/21 08:15 12/07/21 08:15 Lab Results Blood Type / Crossmatch: Patient ABO/Rh A Positive 12/05/21 Antibody Screen NEGATIVE 12/05/21 Complete Blood Count: White Blood Count 4.84 10^3/uL (4.4-10.8) 12/05/21 15:50 Red Blood Count 4.33 10^6/uL (3.93-5.22) 12/05/21 15:50 Hemoglobin 12.4 g/dL (11.2-15.7) 12/05/21 15:50 Hematocrit 36.0 % (36.0-46.0) 12/05/21 15:50 Platelet Count 204 10^3/uL (130-400) 12/05/21 15:50 Complete Metabolic Panel: No Data to Display Liver Function Panel: No Data to Display Coagulation Panel: No Data to Display Cardiac Panel: No Data to Display Arterial Blood Gas: No Data to Display Venous Blood Gas: No Data to Display Pancreas Panel: No Data to Display Thyroid Panel: No Data to Display Infectious Disease: Coronavirus (COVID-19)(PCR) Negative (Negative) 12/05/21 15:40 Coronavirus 2019 Source Nasal/Nares 12/05/21 15:40 Blood Cultures: No Data to Display Toxicology Panel: No Data to Display Panel: Beta HCG, Quantitative 43020 mIU/mL (1-3) H 12/01/21 13:25 Anesthesia Assessment and Plan Anesthesia History Personal History: No History of Anesthesia Complications Family History: No Family History of Anesthesia Complications Exercise Tolerance Exercise Tolerance: Metabolic Equivalents>4 Pertinent Negatives Pertinent Negatives: No Symptoms of GERD, No Major Cardiovascular Symptoms or Complaints, No Major Pulmonary Symptoms or Complaints and No History of CVA/TIA Cardiac & Pulmonary Exam Cardiac Exam: Normal S1/S2 Heart Sounds Pulmonary Exam: Clear Bilateral Breath Sounds Implantable Cardiac Device Does patient have a Pacemaker or an ICD?: No Airway Exam Known Difficult Airway: No Mallampati Class: 2 Mouth Opening: Normal (> 3cm) Thyromental Distance: Greater than 3 cm Neck Range of Motion: Full ROM Neck Circumference: Normal Teeth Condition: Normal Dentition ASA Classification ASA Score: ASA 1 Emergency Case?: No NPO Status NPO Status: NPO Clears >2 hours, Solids >8 hours Status Status: Confirmed and Positive HCG Anesthesia Plan Resuscitation Status: Full Code Anesthesia Technique: General Anesthesia Airway Planned: Natural Airway Monitors Used: Standard Monitors
[2021-12-07 09:08] VITALS: BMI 21.5
--- NOTE | 2021-12-07 09:50 | POCSPONT_PTH ---
PATIENT: Sharon Miller LOC: [facility] U#:[id number] AGE/SX: 26/F ROOM: RE12/07/[address]: Rosita Darnell DO : 1995 BED: DIS: 12/07/2021 SPEC #: [id number] RECD: 12/07/21 12:43 STATUS: CAROLA REQ #: [id number] LAVERN: 12/07/21 09:[address]: Rosita Darnell DEPT: Surgical Specimen RECD BY: Allie Espinosa ENTERED: 12/07/21 12:44 SP TYPE: POCSPONT OTHR DR: Andrei Vaz Tissues: 1 - ,SPONTANEOUS Procedures: GROSS AND MICRO LEVEL 4 Comments: [id number]
[2021-12-07 10:00] VITALS: BP 134/100; PULSE 108; RESP 14; TEMP 36.5; O2SAT 96
--- NOTE | 2021-12-07 10:02 | W.PM.OP ---
Date of service: 12/07/21 Time of Service: 10:02 Operative Note Operative Note DATE OF PROCEDURE: 12/07/21 PRE-OP DIAGNOSIS: Incomplete miscarriage POST-OP DIAGNOSIS: same PROCEDURE: Dilation and curettage with suction SURGEON: Rosita Darnell ANESTHESIA TYPE: General:No Airway Refer to Anesthesia Record ESTIMATED BLOOD LOSS: 50 COMPLICATIONS: None Patient was transported to: same day Patient's condition: stable Implants: None Indications: Incomplete miscarriage Findings: Moderate products of conception Procedure Description: Patient was taken the operating suite with IV running after full informed consent was obtained. She was placed in the dorsal supine position and anesthesia administered with ease. She was then placed in the modified dorsolithotomy position and prepped and draped in usual sterile fashion. Her bladder had been previously drained prior to arrival in the OR. Pneumatic compression stockings were placed for DVT prophylaxis. Exam under anesthesia revealed a uterus that was midline and mobile, approximately 6 to 8 weeks size. Speculum was inserted into the vaginal vault and a single-tooth tenaculum used to grasp the anterior lip of the cervix. With gentle dilation, cervical os dilated to the point that a 7 Icelandic curved suction catheter could be passed with ease. With gentle suction curettage, moderate products of conception were returned. At this point the suction curette was removed and a gentle sharp curettage was performed of the endometrial cavity to the point that the coarse cry of the uterus could be felt in all 4 quadrants. A second pass with the suction curette was performed for scant tissue return. At this point, the procedure was terminated, tenaculum removed from the anterior lip of the cervix and puncture sites were hemostatic. Speculum was removed. Exam under anesthesia revealed a uterus that was small, mobile, midline and hemostatic. At this point patient was returned to the dorsal supine position and awoke from anesthesia with ease. She was taken to the same-day surgical area in stable condition. Complications: None apparent Findings: Small to moderate tissue within the endometrial cavity EBL: 50 mL Fluids: Crystalloid per anesthesia Pathology: Products of conception for examination.
[2021-12-07 10:35] VITALS: BP 130/86; PULSE 84; RESP 18; TEMP 36.6; O2SAT 100
--- NOTE | 2021-12-07 12:19 | W.ANESPOSTOP ---
Postoperative Evaluation Date, Time and Location Date Performed: 12/07/21 Time Performed: 10:15 Patient Location: Day Surgery Unit Vital Signs Most Recent Imported Vital Signs: Most Recent Vital Signs Temp Pulse Resp BP Pulse Ox 36.6 C 84 18 130/86 100 12/07/21 10:35 12/07/21 10:35 12/07/21 10:35 12/07/21 10:35 12/07/21 10:35 Pain Score Most Recent Pain Score: Most Recent Pain Score Pain Level 1 12/07/21 10:35 Assessment Mental Status: Awake (Alert & Oriented to Patient Baseline) Airway and Respiratory Function: Patent airway with normal (patient baseline) respiratory exam Cardiovascular Function: Hemodynamically Stable Hydration Status: Adequately Hydrated Nausea & Vomiting: No Nausea or Vomiting Pain: Pt. Denies Any Pain Peripheral Nerve Block: Patient did not receive a nerve block
== END 2021-12-07 11:05 | disposition home or self-care (01) ==
PROVIDERS: PCP Family Medicine; Visit Provider Obstetrics & Gynecology
PROC: (CPT 59841; principal; 2021-12-07 10:15)
DX: O03.4 Incomplete spontaneous abortion without complication (principal); Z3A.01 Less than 8 weeks gestation of pregnancy; D50.9 Iron deficiency anemia, unspecified
CPT/HCPCS: 59812; 88305; J1100; J1885; J2405

== ENCOUNTER 2022-01-25 02:24 | Outpatient (CLI) | payer MEDICAID, SELFPAY ==
[2022-01-25 12:26] LABS: Source Nasal/Nares
[2022-01-25 14:49] LABS: COVID-19 PCR Negative (Negative)
== END 2022-01-25 02:25 | disposition home or self-care (01) ==
LOC: LBO 02:24
PROVIDERS: PCP Family Medicine; Visit Provider Student in an Organized Health Care Education/Training Program
DX: Z20.822 Contact with and (suspected) exposure to COVID-19 (principal); Z01.818 Encounter for other preprocedural examination
CPT/HCPCS: 87635

== ENCOUNTER 2022-01-27 06:19 | Day surgery (SDC) | payer MEDICAID, SELFPAY ==
[2022-01-27] VITALS (9 sets, daily range): BP systolic 90–116; BP diastolic 46–87; PULSE 52–79; RESP 15–19; TEMP 36.1–36.6; O2SAT 97–100; BMI 23.1
--- NOTE | 2022-01-27 06:08 | W.ANESPRE ---
General Info Date of Service Date Performed: 01/27/22 Height: 5 ft 7.5 in Weight: 68.039 kg Body Mass Index (BMI): 23.1 Surgical Procedure: Operation Date: 01/27/22 07:50 Proposed Procedure Side Surgeon p Hip Arthroscopy w/Labral Repair and Femoroplasty Left Shahriar Foote MD Meds Allergies and Home Medications Allergies Allergy/AdvReac Type Severity Reaction Status Date / Time No Known Allergies Allergy Verified 01/27/22 06:43 Home Medication Medication Instructions Recorded Lactobacillus acidophilus 10 10,000 mmu cells PO DAILY 11/25/21 billion cell capsule (Probiotic) multivitamin 1 tab PO DAILY 11/25/21 aspirin 81 mg tablet,delayed 81 mg PO DAILY Prevent blood clot 01/27/22 release 14 days #14 tabs naproxen 250 mg tablet 250 - 500 mg PO BID PRN #40 tabs 01/27/22 oxycodone 5 mg tablet 5 - 10 mg PO Q4H PRN moderate to 01/27/22 severe pain #18 tabs Current Visit Medications: Current Medications Generic Name Dose Route Start Last Admin Trade Name Freq PRN Reason Stop Dose Admin Ringer's Solution 1,000 mls @ 100 mls/hr 01/27/22 06:00 IV 01/27/22 16:00 INFUSION TEE Cefazolin Sodium/Dextrose 2 gm in 50 mls @ 100 mls/hr 01/27/22 06:00 Ancef Duplex IVPB 01/27/22 16:00 PREOP TEE IV Miscellaneous Supplies 1 each 01/27/22 06:00 Iv Access IV 01/27/22 16:00 DIRECTED TEE Sodium Chloride 0 ml 01/27/22 06:00 Normal Saline Flush 10 Ml Syr IV 01/27/22 16:00 PRN PRN Sodium Chloride 0 ml 01/27/22 06:00 Normal Saline 10 Ml Vial IJ 01/27/22 16:00 DIRECTED PRN Sterile Water 0 ml 01/27/22 06:00 Water,Injection,Sterile 10 Ml Vial IJ 01/27/22 16:00 DIRECTED PRN PFSH Active Problems Active Problems: Problem Status Onset Code Femoroacetabular impingement of right hip M25.851 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 states medical Hx of tonsillectomy 04/04/2021 Hx of wisdom tooth extraction Tobacco Smoking/Tobacco Use Status: Never Alcohol Alcohol Intake: never Substance Use Substance use: Rarely Substance use type: marijuana Vital Signs and Lab Results Vital Signs Most Recent Vital Signs in EMR: Temp Pulse Resp BP Pulse Ox 36.6 C 66 16 116/87 99 01/27/22 06:46 01/27/22 06:46 01/27/22 06:46 01/27/22 06:46 01/27/22 06:46 Lab Results Blood Type / Crossmatch: No Data to Display Complete Blood Count: No Data to Display Complete Metabolic Panel: No Data to Display Liver Function Panel: No Data to Display Coagulation Panel: No Data to Display Cardiac Panel: No Data to Display Arterial Blood Gas: No Data to Display Venous Blood Gas: No Data to Display Pancreas Panel: No Data to Display Thyroid Panel: No Data to Display Infectious Disease: Coronavirus (COVID-19)(PCR) Negative (Negative) 01/25/22 08:30 Coronavirus 2019 Source Nasal/Nares 01/25/22 08:30 Blood Cultures: No Data to Display Toxicology Panel: No Data to Display Panel: No Data to Display Anesthesia Assessment and Plan Anesthesia History Personal History: No History of Anesthesia Complications Family History: No Family History of Anesthesia Complications Exercise Tolerance Exercise Tolerance: Metabolic Equivalents>4 Cardiac & Pulmonary Exam Cardiac Exam: Normal S1/S2 Heart Sounds Pulmonary Exam: Clear Bilateral Breath Sounds Implantable Cardiac Device Does patient have a Pacemaker or an ICD?: No Airway Exam Known Difficult Airway: No Mallampati Class: 2 Mouth Opening: Normal (> 3cm) Thyromental Distance: Greater than 3 cm Neck Range of Motion: Full ROM Neck Circumference: Normal Teeth Condition: Normal Dentition ASA Classification ASA Score: ASA 2 Emergency Case?: No NPO Status NPO Status: NPO Clears >2 hours, Solids >8 hours Status Status: Negative HCG Anesthesia Plan Resuscitation Status: Full Code Anesthesia Technique: General Anesthesia Airway Planned: Endotracheal Tube Pain Management: Surgeon and patient request nerve block Monitors Used: Standard Monitors Preoperative Comments:: 26 yo female for hip scope. Sig PMHx: anxiety, never smoker, occ cannabis. Previous meneses 2, grade 2a Plan BRIDGETTE GHOSH. Discussed risks, benefits of BRIDGETTE and potential risk (but not limited to) of quad weakness and nerve injury.
[2022-01-27] MEDS: Lactated Ringers 1,000 ML 100 ML IV (07:20)
[2022-01-27] MEDS: ceFAZolin 2 GM/50 ML BAG IVPB (07:52)
--- NOTE | 2022-01-27 08:00 | W.PM.OP ---
Operative Note Operative Note DATE OF PROCEDURE: 01/27/22 PRE-OP DIAGNOSIS: Right hip 1. Labral tear 2. Femoracetabular impingement POST-OP DIAGNOSIS: same PROCEDURE: Right hip 1. Arthroscopic labral debridement, CPT# 32041 2. Arthroscopic femoroplasty, CPT# 17155 SURGEON: Shahriar Foote PROVIDER RELATIONS MANAGER: Kirk Delvalle ANESTHESIA TYPE: Local By Surgeon, General LMA/ETT and Primary Nerve Block (BRIDGETTE) Refer to Anesthesia Record ESTIMATED BLOOD LOSS: 5 COMPLICATIONS: None Patient was transported to: PACU Patient's condition: stable Implants: None Indications: Please see complete medical record for details. Procedure Description: In the operating room, general and regional anesthesia were induced. The patient was positioned supine on the Mcandrews table. All bony prominences were well-padded. Preoperative antibiotics were administered. The correct patient, procedure, and side of the procedure were all verified prior to incision. 20 cc of 0.25% bupivacaine containing epinephrine was infiltrated about the planned portal sites. Fluoroscopically, an anterolateral portal was established with hip under about 1 cm distraction. Traction start time as noted. Through the spinal needle, a nitinol wire was inserted and the needle removed. An 11 blade was used to create a portal sized incision about the Nitinol wire. A small 4 mm dilator was passed atraumatically over the nitinol wire through the capsule into the hip joint. The nitinol wire was removed. A 6 mm dilator was then passed over the smaller one into the hip joint and the initial dilator removed. The blunt end of a switching stick was then passed into the hip joint and the last dilator removed. The camera sleeve was then inserted over the switching stick, the switching stick removed, and the arthroscope attached to the camera sleeve. An initial dry arthroscopy of the hip joint confirmed appropriate viewing portal location about the equator laterally. Using a combination of fluoroscopic guidance and arthroscopic triangulation a modified mid anterior portal was established in a similar fashion with a spinal needle and sequential dilators. Care was taken to ensure the portal was in an appropriate position and outside the labrum. A banana blade was inserted anteriorly over half pipe. The capsule was released distal to the labrum working towards the anterolateral portal. The camera was then switched to the anterior portal, the anterolateral portal location was confirmed to be appropriate, and the banana blade brought in the anterolateral portal and the interportal capsulotomy completed. The camera was then switched back to the anterolateral portal. A complete diagnostic arthroscopy of the hip was performed with relevant findings noted above. There was a small area of anterior superior labral fraying. There was a small labral recess that did not have any instability on probing. The adjacent cartilage did not have any wave sign or wrinkling either. Acetabular cartilage was intact. There was no additional anterior or superior labral tearing. Mechanical shaver was used in the radiofrequency ablator to smooth labrum tissue to a stable margin. The remaining labrum was probed again and did not exhibit any additional tearing or instability requiring repair. The blunt end of a switching stick was left in the anterior portal, but appropriately withdrawn from hip joint. The camera was withdrawn similarly. Under direct visualization traction was gradually released at 39. The femoral head neck junction was inspected about the zone of labral injury. The hip was brought through internal rotation, external rotation, and deep flexion with rotation. There was a zone of cartilage thinning and delamination corresponding to the area of labral pathology. More distally external rotation x-rays show the femoral head neck offset abnormality with small bony protuberance. Retracting the capsulotomy distally as well as fluoroscopic guidance and various hip positions, the sarah was used to reshape the femoral neck starting at the head neck junction and working distally to recreate more spherical anatomy. Care was taken to ensure optimal resection under multiple views arthroscopically and fluoroscopically. The limited capsulotomy had well apposed tissue ends and was not formally closed. The hip was drained of arthroscopic fluid. The portals were closed using 3-0 Monocryl in a buried fashion. Steri-Strips were applied over the incisions followed by Xeroform, 4 x 4 gauze, an ABD pad, and secured with tape. The patient awoke from anesthesia without complication and was transferred to the recovery room in a stable condition.
--- NOTE | 2022-01-27 08:06 | W.ANESNERVE ---
Nerve Block Single Injection Procedure Date and Time Date Performed: 01/27/22 Procedure Start: 07:48 Location Where Procedure Performed Procedure Location: Operating Room Procedure Stop: 07:55 Reason Performed: Postoperative Analgesia Requesting Provider: Shahriar Foote Timeout Performed Timeout Performed: Yes Monitoring Used ECG, Blood Pressure, SpO2 and ETCO2 Sterility Sterility: Hand Hygiene, Surgical Cap, Surgical Mask, Sterile Gloves and Chlorhexidine Sedation Given During Procedure Sedation Given (Indicate Dose Given): No Sedation given Patient Mental Status Patient Mental Status: Performed under general anesthesia Nerve Block 1st Nerve Block: Laterality: Right Block Type: BRIDGETTE Needle / Catheter Used: 100mm SonoPlex II Local Anesthetic Bolus (Indicate Dose Given): Bupivacaine 0.5% Dose:: 15 mL Additives (Indicate Dose Given): Epinephrine to make 1:400,000 (2.5mcg/ml) Dose:: 37.5 and Precedex Dose:: 45 mcg Ultrasound: Sterile probe cover and gel used Ultrasound Image Saved?: Yes Nerve Stimulator: Not Used Paresthesia: None (NA) Procedure Tolerated: No Complications Procedure Outcome: Successful Performed By: Dieter Marcos
[2022-01-27] MEDS: Bupivacaine 0.25% Pres-Free W/EPI 30 ML VIAL (08:33)
[2022-01-27] MEDS: EPINEPHrine 30 MG/30 ML VIAL (09:13)
--- NOTE | 2022-01-27 09:55 | DI.RAD_ITS ---
Exam(s) XR HIP RT IN OR EXAM: XR HIP RT IN OR CLINICAL HISTORY: (1) Labral tear of left hip joint: TECHNIQUE: 2D and realtime digital imaging was performed. COMPARISON: No exams were available for comparison FINDINGS: C-arm fluoroscopy was utilized by Dr. Foote. Please see Dr. Foote is procedure note. IMPRESSION: RADIATION DOSE DELIVERED: brina Hand=11.3 mGy
--- NOTE | 2022-01-27 10:32 | W.PM.DSUDISC ---
Discharge Plan Disposition Patient Disposition: HOME Condition: Good Discharge Details Reason For Visit: Right hip surgery Attending Provider: Shahriar Foote Primary Care Provider: Andrei Vaz Home Meds and New Rx's Prescriptions: New aspirin 81 mg tablet,delayed release (DR/EC) 81 mg PO DAILY 14 Days Qty: 14 0RF oxycodone 5 mg tablet 5 - 10 mg PO Q4H MDD 30 mg PRN (Reason: moderate to severe pain) Qty: 18 0RF naproxen 250 mg tablet 250 - 500 mg PO BID PRNQty: 40 0RF Rx Instructions: take with a meal Continued multivitamin Tablet 1 tab PO DAILY Probiotic 10 billion cell Capsule 10,000 mmu cells PO DAILY Discharge Instructions Additional Instructions: Surgery: Right hip arthroscopy with labral debridement and femoroplasty Activity: Weightbearing as tolerated. May discontinue crutches as soon as comfortable. Avoid deep hip flexion for 4 weeks. Avoid high?impact activities for 6-8 weeks. No sports or running for at least 2-3 months. A physical therapy prescription will be sent electronically to start in about 3 weeks. Prescriptions: Aspirin 81 mg take 1 daily to prevent a blood clot for 14 days Naproxen 250 mg take 1-2 every 12 hours with a meal as needed for moderate pain Oxycodone 5 mg take 1-2 every 4-6 hours as needed for severe pain You may use [id number] Tylenol (acetaminophen) as needed for mild pain. These pain medications may be taken all at once or in different combinations as needed. Also, recommend Colace (docusate) as a stool softener as surgery and pain medicine cause constipation. You may try [id number] diphenhydramine (Benadryl) 25-50 mg nightly as a sleep aid Dressings: Leave dressing in place for 3 days. May then remove and leave open to air or cover incisions with Band-Aids. May shower after 5 days. Follow-up: 10-[address] Foote Let us know right away if you develop any redness, drainage, fevers, chest pain, or trouble breathing. Do not drink alcohol or drive for at least 24 hours after anesthesia. Please call the office during business hours with any questions or concerns. Discharge Orders Discharge Orders: Discharge Order (Routine); Ordered 01/27/22 Ordered By: Shahriar Foote DS: Diagnosis Discharge Diagnosis (1) Femoroacetabular impingement of right hip: Status: Acute
[2022-01-27] MEDS: Normal Saline 10 ML VIAL IJ (10:45)
[2022-01-27] MEDS: HYDROmorphone 2 MG/ML SYR IVP ×2 (10:45→10:55)
[2022-01-27] MEDS: oxyCODONE 5 MG TAB PO ×2 (11:34→12:36)
--- NOTE | 2022-01-27 11:38 | W.ANESPOSTOP ---
Postoperative Evaluation Date, Time and Location Date Performed: 01/27/22 Time Performed: 11:38 Patient Location: PACU Vital Signs Most Recent Imported Vital Signs: Most Recent Vital Signs Temp Pulse Resp BP Pulse Ox 36.2 C L 53 L 18 109/71 100 01/27/22 11:07 01/27/22 11:07 01/27/22 11:07 01/27/22 11:07 01/27/22 11:07 Pain Score Most Recent Pain Score: Most Recent Pain Score Pain Level 5 01/27/22 11:07 Assessment Mental Status: Arousable with meaningful communication Airway and Respiratory Function: Patent airway with normal (patient baseline) respiratory exam Cardiovascular Function: Hemodynamically Stable Hydration Status: Adequately Hydrated Nausea & Vomiting: No Nausea or Vomiting Pain: Pain is tolerable per patient Peripheral Nerve Block: Regional nerve block not resolved at time of post operative discharge
== END 2022-01-27 14:00 | disposition home or self-care (01) ==
PROVIDERS: PCP Family Medicine; Visit Provider Student in an Organized Health Care Education/Training Program
PROC: (CPT 29860; principal; 2022-01-27 07:30)
DX: M25.851 Other specified joint disorders, right hip (principal); M24.151 Other articular cartilage disorders, right hip
CPT/HCPCS: 29914; 29862; 76942; 81025; 73501; J0131; J0690; J1100; J1170; J1885; J2250; J2405; J2704; J3475

== ENCOUNTER 2022-03-15 13:36 | Outpatient (REF) | payer MEDICAID, SELFPAY ==
--- NOTE | 2022-03-15 13:30 | PAPFT_PTH ---
PATIENT: Sharon Miller LOC: [facility] U#:[id number] AGE/SX: 26/F ROOM: RE03/15/[address]: Rosita Darnell DO : 1995 BED: DIS: 03/15/2022 SPEC #: [id number] RECD: 03/15/22 17:46 STATUS: SOUDewayne REQ #: [id number] LAVERN: 03/15/22 13:[address]: Rosita Darnell DEPT: [facility] Cytology RECD BY: Allie Espinosa ENTERED: 03/15/22 17:46 SP TYPE: PAPFT OTHR DR: Andrei Vaz Tissues: 1 - CX/ENDOCX FOR PAP SMEARS Procedures: PAP THIN PREP/[facility] Screening Comments: [id number]
== END 2022-03-15 13:37 | disposition home or self-care (01) ==
LOC: LBN 13:36
PROVIDERS: PCP Family Medicine; Visit Provider Obstetrics & Gynecology
DX: R87.612 Low grade squamous intraepithelial lesion on cytologic smear of cervix (LGSIL) (principal)
CPT/HCPCS: 88142

== ENCOUNTER 2022-04-04 12:33 | Outpatient (REF) | payer MEDICAID, SELFPAY ==
--- NOTE | 2022-04-04 09:45 | ENDO_PTH ---
PATIENT: Sharon Miller LOC: [facility] U#:[id number] AGE/SX: 26/F ROOM: RE04/04/[address]: Rosita Darnell DO : 1995 BED: DIS: 04/04/2022 SPEC #: [id number] RECD: 04/04/22 12:52 STATUS: CAROLA REQ #: [id number] LAVERN: 04/04/22 09:[address]: Rosita Darnell DEPT: Surgical Specimen RECD BY: Safia Topete ENTERED: 04/04/22 12:54 SP TYPE: Endo OTHR DR: Andrei Vaz Tissues: 1 - ENDOCERVICAL BX/CURRETTE 2 - CERVICAL BIOPSY Procedures: GROSS AND MICRO LEVEL 4 Comments: [id number]
== END 2022-04-04 12:34 | disposition home or self-care (01) ==
LOC: LBN 12:33
PROVIDERS: PCP Family Medicine; Visit Provider Obstetrics & Gynecology
DX: N72 Inflammatory disease of cervix uteri (principal)
CPT/HCPCS: 88305

== ENCOUNTER 2022-05-05 10:53 | Day surgery (SDC) | payer MEDICAID, SELFPAY ==
[2022-05-05] VITALS (7 sets, daily range): BP systolic 94–121; BP diastolic 60–87; PULSE 58–77; RESP 13–17; TEMP 36.2–36.5; O2SAT 95–100; BMI 21.7
[2022-05-05] MEDS: Lactated Ringers 1,000 ML 30 ML IV (11:51)
--- NOTE | 2022-05-05 14:00 | DI.RAD_ITS ---
Exam(s) XR HIP LT IN OR EXAM: XR HIP LT IN OR CLINICAL HISTORY: Left hip labral tear TECHNIQUE: 2D and realtime digital imaging was performed. CONTRAST MATERIAL: Refer to procedure report. COMPARISON: No exams were available for comparison FINDINGS: Fluoroscopy was provided for Dr. Foote during the performance of a labral repair. Please refer to t gordo procedure report for complete details. Ka,r=2.8 mGy IMPRESSION: RADIATION DOSE DELIVERED:
--- NOTE | 2022-05-05 14:18 | W.ANESPRE ---
General Info Date of Service Date Performed: 05/05/22 Height: 5 ft 8 in Weight: 64.8 kg Body Mass Index (BMI): 21.7 Surgical Procedure: Operation Date: 05/05/22 12:05 Proposed Procedure Side Surgeon p Hip Arthroscopy w/Labral Debridement vs Repair and Femoroplasty Left Shahriar Foote MD Meds Allergies and Home Medications Allergies Allergy/AdvReac Type Severity Reaction Status Date / Time No Known Allergies Allergy Verified 05/05/22 11:15 Home Medication Medication Instructions Recorded Lactobacillus acidophilus 10 10,000 mmu cells PO DAILY 11/25/21 billion cell capsule (Probiotic) multivitamin 1 tab PO DAILY 11/25/21 naproxen 250 mg tablet 250 - 500 mg PO BID PRN #40 tabs 01/27/22 aspirin 81 mg tablet,delayed 81 mg PO DAILY Prevent blood clot 05/05/22 release 14 days #14 tabs naproxen 250 mg tablet 250 - 500 mg PO BID PRN #40 tabs 05/05/22 oxycodone 5 mg tablet 5 - 10 mg PO Q4H PRN moderate to 05/05/22 severe pain #18 tabs Current Visit Medications: Current Medications Generic Name Dose Route Start Last Admin Trade Name Freq PRN Reason Stop Dose Admin Ringer's Solution 1,000 mls @ 30 mls/hr 05/05/22 06:00 05/05/22 11:51 IV 05/05/22 16:00 30 mls/hr INFUSION TEE Administration Cefazolin Sodium/Dextrose 2 gm in 50 mls @ 100 mls/hr 05/05/22 06:00 Ancef Duplex IVPB 05/05/22 23:59 PREOP TEE IV Miscellaneous Supplies 1 each 05/05/22 06:00 Iv Access IV 05/05/22 23:59 DIRECTED TEE Oxycodone HCl 0 mg 05/05/22 11:26 Oxycodone 5 Mg Tab PO Q3H PRN PRN Pain Sodium Chloride 0 ml 05/05/22 06:00 Normal Saline Flush 10 Ml Syr IV 05/05/22 23:59 PRN PRN Sodium Chloride 0 ml 05/05/22 06:00 Normal Saline 10 Ml Vial IJ 05/05/22 23:59 DIRECTED PRN Sterile Water 0 ml 05/05/22 06:00 Water,Injection,Sterile 10 Ml Vial IJ 05/05/22 23:59 DIRECTED PRN PFSH Active Problems Active Problems: Problem Status Onset Code 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 Sacroiliac joint pain M53.3 Labral tear of left hip joint S73.192A Low grade squamous intraepithelial lesion (LGSIL) on cervical Pap smear R87.612 Medical History Medical History (Updated 05/05/22 @ 11:27 by Shahriar Foote MD) Chronic tonsillitis Femoroacetabular impingement of right hip Injection under fluoroscopy: 03/31/2021 Generalized anxiety disorder Halitosis 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 Foote Hx of dilation and curettage Per pt. states medical Hx of tonsillectomy 04/04/2021 Hx of wisdom tooth extraction Postoperative state Dilation and curettage with suction Tobacco Smoking/Tobacco Use Status: Current-Occasional Tobacco Type: cigarettes Smoking cigarettes per day: 1 Alcohol Alcohol Intake: current Alcohol intake frequency: holidays/special occasions only Alcohol type: wine Substance Use Substance use: Occasionally Substance use type: marijuana Details: smokes it last used about 5 or 6 days ago. Prental History History 1 Para 0 Hx # Term Pregnancies Multiple births Hx # Pregnancies Ectopic pregnancies AB induced 1 Hx Number of Living Children AB spontaneous Vital Signs and Lab Results Vital Signs Most Recent Vital Signs in EMR: Most Recent Vital Signs Temp Pulse Resp BP Pulse Ox 36.5 C 60 17 121/87 99 05/05/22 11:01 05/05/22 11:01 05/05/22 11:01 05/05/22 11:01 05/05/22 11:01 Point of Care Results Point of Care Results: POC- Test(urine) Negative 05/05/22 12:04 Lab Results Blood Type / Crossmatch: No Data to Display Complete Blood Count: No Data to Display Complete Metabolic Panel: No Data to Display Liver Function Panel: No Data to Display Coagulation Panel: No Data to Display Cardiac Panel: No Data to Display Arterial Blood Gas: No Data to Display Venous Blood Gas: No Data to Display Pancreas Panel: No Data to Display Thyroid Panel: No Data to Display Infectious Disease: No Data to Display Blood Cultures: No Data to Display Toxicology Panel: No Data to Display Panel: No Data to Display Anesthesia Assessment and Plan Anesthesia History Personal History: No History of Anesthesia Complications Family History: No Family History of Anesthesia Complications Exercise Tolerance Exercise Tolerance: Metabolic Equivalents>4 Pertinent Negatives Pertinent Negatives: No Symptoms of GERD, No Major Cardiovascular Symptoms or Complaints, No Major Pulmonary Symptoms or Complaints and No History of CVA/TIA Cardiac & Pulmonary Exam Cardiac Exam: Normal S1/S2 Heart Sounds Pulmonary Exam: Clear Bilateral Breath Sounds Implantable Cardiac Device Does patient have a Pacemaker or an ICD?: No Airway Exam Known Difficult Airway: No Mallampati Class: 2 Mouth Opening: Normal (> 3cm) Thyromental Distance: Greater than 3 cm Neck Range of Motion: Full ROM Neck Circumference: Normal Teeth Condition: Normal Dentition ASA Classification ASA Score: ASA 2 Emergency Case?: No NPO Status NPO Status: NPO Clears >2 hours, Solids >8 hours Status Status: Negative HCG Anesthesia Plan Resuscitation Status: Full Code Anesthesia Technique: General Anesthesia Airway Planned: Endotracheal Tube Pain Management: Surgeon and patient request nerve block (BRIDGETTE block) Monitors Used: Standard Monitors Preoperative Comments:: Sig PMHx: anxiety, never smoker, occ cannabis. Previous meneses 2, grade 2a Plan BRIDGETTE GHOSH. I discussed benefits of Ruth, patient waived hearing risks as she heard them last visit.
[2022-05-05] MEDS: ceFAZolin 2 GM/50 ML BAG IVPB (14:28)
--- NOTE | 2022-05-05 15:05 | W.ANESNERVE ---
Nerve Block Single Injection Procedure Date and Time Date Performed: 05/05/22 Procedure Start: 14:38 Location Where Procedure Performed Procedure Location: Operating Room Procedure Stop: 14:50 Reason Performed: Postoperative Analgesia Requesting Provider: Shahriar Foote Timeout Performed Timeout Performed: Yes Monitoring Used ECG, Blood Pressure, SpO2 and ETCO2 Sterility Sterility: Hand Hygiene, Surgical Cap, Surgical Mask, Sterile Gloves and Chlorhexidine Sedation Given During Procedure Sedation Given (Indicate Dose Given): No Sedation given Patient Mental Status Patient Mental Status: Performed under general anesthesia Nerve Block 1st Nerve Block: Laterality: Left Block Type: BRIDGETTE Needle / Catheter Used: 100mm SonoPlex II Local Anesthetic Bolus (Indicate Dose Given): Injected in 3-5ml increments after negative blood aspiration, Blood noted on aspiration (Seen during second injection, removed, flushed and reapproached with no blood on subsequent) and Bupivacaine 0.5% Dose:: 15 ml Additives (Indicate Dose Given): None (Epi wash used) and Precedex Dose:: 45 mcg Ultrasound: Sterile probe cover and gel used Ultrasound Image Saved?: Yes Nerve Stimulator: Not Used Paresthesia: None Procedure Tolerated: No Complications and Patient tolerated well Procedure Outcome: Successful Performed By: Nils Perdomo
[2022-05-05] MEDS: Bupivacaine 0.5% Pres-Free W/EPI 30 ML VIAL (15:38)
[2022-05-05] MEDS: EPINEPHrine 30 MG/30 ML VIAL (15:45)
--- NOTE | 2022-05-05 16:38 | W.ANESPOSTOP ---
Postoperative Evaluation Date, Time and Location Date Performed: 05/05/22 Time Performed: 16:39 Patient Location: Day Surgery Unit Vital Signs Most Recent Imported Vital Signs: Most Recent Vital Signs Temp Pulse Resp BP Pulse Ox 36.3 C L 77 13 94/61 L 100 05/05/22 16:32 05/05/22 16:32 05/05/22 16:32 05/05/22 16:32 05/05/22 16:32 Pain Score Most Recent Pain Score: Most Recent Pain Score Pain Level 0 05/05/22 11:01 Assessment Mental Status: Awake (Alert & Oriented to Patient Baseline) Airway and Respiratory Function: Patent airway with normal (patient baseline) respiratory exam Cardiovascular Function: Hemodynamically Stable Hydration Status: Adequately Hydrated Nausea & Vomiting: No Nausea or Vomiting Pain: Pain is tolerable per patient (reports 4/10, tolerable) Peripheral Nerve Block: Patient did not receive a nerve block
--- NOTE | 2022-05-05 16:51 | W.PM.DSUDISC ---
Date of service: 05/05/22 Time of Service: 16:51 Discharge Plan Disposition Patient Disposition: Home Discharge Details Attending Provider: Shahriar Foote Primary Care Provider: Andrei Vaz Home Meds and New Rx's Prescriptions: New aspirin 81 mg tablet,delayed release (DR/EC) 81 mg PO DAILY 14 Days Qty: 14 0RF naproxen 250 mg tablet 250 - 500 mg PO BID PRNQty: 40 0RF Rx Instructions: take with a meal oxycodone 5 mg tablet 5 - 10 mg PO Q4H MDD 30 mg PRN (Reason: moderate to severe pain) Qty: 18 0RF Continued multivitamin Tablet 1 tab PO DAILY Probiotic 10 billion cell Capsule 10,000 mmu cells PO DAILY No Action naproxen 250 mg tablet 250 - 500 mg PO BID PRNQty: 40 0RF Rx Instructions: take with a meal Discharge Instructions Additional Instructions: Surgery: Left hip arthroscopy with labral debridement and femoroplasty Activity: Weightbearing as tolerated. May discontinue crutches as soon as comfortable. Avoid deep hip flexion for 4 weeks. Avoid high?impact activities for 6-8 weeks. No sports or running for at least 2-3 months. A physical therapy prescription will be sent electronically to start in about 3 weeks. Prescriptions: Aspirin 81 mg take 1 daily to prevent a blood clot for 14 days Naproxen 250 mg take 1-2 every 12 hours with a meal as needed for moderate pain Oxycodone 5 mg take 1-2 every 4-6 hours as needed for severe pain You may use [id number] Tylenol (acetaminophen) as needed for mild pain. These pain medications may be taken all at once or in different combinations as needed. Also, recommend Colace (docusate) as a stool softener as surgery and pain medicine cause constipation. You may try [id number] diphenhydramine (Benadryl) 25-50 mg nightly as a sleep aid Dressings: Leave dressing in place for 3 days. May then remove and leave open to air or cover incisions with Band-Aids. May shower after 5 days. Follow-up: 10-[address] Foote Let us know right away if you develop any redness, drainage, fevers, chest pain, or trouble breathing. Do not drink alcohol or drive for at least 24 hours after anesthesia. Please call the office during business hours with any questions or concerns. Stand Alone Forms: Anesthesia Discharge Inst., Anes.Sugammadex Interaction, Anes.Nerve Block Instructions, Dmitriy Granda (DSU) Discharge Orders Discharge Orders: Discharge Order (Routine); Ordered 05/05/22 Ordered By: Shahriar Foote DS: Diagnosis Discharge Diagnosis (1) Labral tear of left hip joint: Status: Acute (2) Femoroacetabular impingement of left hip: Status: Acute
[2022-05-05] MEDS: oxyCODONE 5 MG TAB PO (16:54)
--- NOTE | 2022-05-05 16:57 | W.PM.OP ---
Date of service: 05/05/22 Time of Service: 15:00 Operative Note Operative Note DATE OF PROCEDURE: 01/27/22 PRE-OP DIAGNOSIS: Left hip 1. Labral tear 2. Femoracetabular impingement POST-OP DIAGNOSIS: same PROCEDURE: Left hip 1. Arthroscopic labral debridement, CPT# 81416 2. Arthroscopic femoroplasty, CPT# 49166 SURGEON: Shahriar Foote MECHANICAL APPLICATIONS ENGINEER: Liz Kaminski ANESTHESIA TYPE: Local By Surgeon, General LMA/ETT and Primary Nerve Block (BRIDGETTE) Refer to Anesthesia Record ESTIMATED BLOOD LOSS: 5 COMPLICATIONS: None Patient was transported to: PACU Patient's condition: stable Implants: None Indications: Please see complete medical record for details. Procedure Description: In the operating room, general and regional anesthesia were induced. The patient was positioned supine on the [place] table. All bony prominences were well-padded. Preoperative antibiotics were administered. The correct patient, procedure, and side of the procedure were all verified prior to incision. 20 cc of 0.25% bupivacaine containing epinephrine was infiltrated about the planned portal sites. Fluoroscopically, an anterolateral portal was established with hip under about 1 cm distraction. Traction start time as noted. Through the spinal needle, a nitinol wire was inserted and the needle removed. An 11 blade was used to create a portal sized incision about the Nitinol wire. A small 4 mm dilator was passed atraumatically over the nitinol wire through the capsule into the hip joint. The nitinol wire was removed. A 6 mm dilator was then passed over the smaller one into the hip joint and the initial dilator removed. The blunt end of a switching stick was then passed into the hip joint and the last dilator removed. The camera sleeve was then inserted over the switching stick, the switching stick removed, and the arthroscope attached to the camera sleeve. An initial dry arthroscopy of the hip joint confirmed appropriate viewing portal location about the equator laterally. Using a combination of fluoroscopic guidance and arthroscopic triangulation a modified mid anterior portal was established in a similar fashion with a spinal needle and sequential dilators. Care was taken to ensure the portal was in an appropriate position and outside the labrum. A banana blade was inserted anteriorly over half pipe. The capsule was released distal to the labrum working towards the anterolateral portal around the zone of labral injury. The camera was then switched to the anterior portal, the anterolateral portal location was confirmed to be appropriate, and the banana blade brought in the anterolateral portal and a small capsulotomy made here to allow for instrument movement. The camera was then switched back to the anterolateral portal. A complete diagnostic arthroscopy of the hip was performed with relevant findings noted above. There was a moderate area of anterior superior labral fraying and corresponding synovitis. The fraying was largely superficial, but in a small zone the tearing was moderate thickness. There was no labral or cartilage instability. Acetabular cartilage was intact. Mechanical shaver and radiofrequency ablator were used smooth labrum tissue to a stable margin. The remaining labrum was probed again and did not exhibit any additional tearing or instability requiring repair. There was no additional anterior or superior labral tearing. The blunt end of a switching stick was left in the anterior portal, but appropriately withdrawn from hip joint. The camera was withdrawn similarly. Under direct visualization traction was gradually released at 35 minutes. The femoral head neck junction was inspected about the zone of labral injury. The hip was brought through internal rotation, external rotation, and deep flexion with rotation. There was a small zone of cartilage thinning and delamination corresponding to the area of labral pathology that could be engaged with flexion and internal rotation. There was no significant cam abnormality or bony prominence. The mechanical shaver was used to do a small femoroplasty in this area of cartilage injury. The limited capsulotomies had well apposed tissue ends and was not formally closed. The hip was drained of arthroscopic fluid. The portals were closed using 3-0 Monocryl in a buried fashion. Steri-Strips were applied over the incisions followed by Xeroform, 4 x 4 gauze, an ABD pad, and secured with tape. The patient awoke from anesthesia without complication and was transferred to the recovery room in a stable condition.
== END 2022-05-05 17:47 | disposition home or self-care (01) ==
PROVIDERS: PCP Family Medicine; Visit Provider Student in an Organized Health Care Education/Training Program
PROC: (CPT 29860; principal; 2022-05-05 11:45)
DX: S73.192A Other sprain of left hip, initial encounter (principal); M25.852 Other specified joint disorders, left hip; M53.3 Sacrococcygeal disorders, not elsewhere classified; X58.XXXA Exposure to other specified factors, initial encounter
CPT/HCPCS: 29914; 29862; 76942; 81025; 73501; J0131; J0171; J0690; J1100; J1885; J2250; J2370; J2405; J3475

== ENCOUNTER 2023-06-05 12:40 | Outpatient (REF) | payer BC, SELFPAY ==
--- NOTE | 2023-06-05 10:20 | PAPFT_PTH ---
PATIENT: Sharon Miller LOC: [facility] U#:[id number] AGE/SX: 27/F ROOM: RE06/05/[address]: Rosita Darnell DO : 1995 BED: DIS: 06/05/2023 SPEC #: [id number] RECD: 06/05/23 12:58 STATUS: SOUDewayne REQ #: [id number] LAVERN: 06/05/23 10:[address]: Rosita Darnell DEPT: [facility] Cytology RECD BY: Allie Espinosa ENTERED: 06/05/23 12:58 SP TYPE: PAPFT OTHR DR: Andrei Vaz Tissues: 1 - CX/ENDOCX FOR PAP SMEARS Procedures: PAP THIN PREP/UVM Screening HPV DNA PROBE Comments: [id number] (HPV 16 & 18/45) (CHLAMYDIA/GC)
[2023-06-06 14:54] LABS: Chlamydia Result Negative (Negative); GC Result Negative (Negative)
== END 2023-06-05 12:41 | disposition home or self-care (01) ==
LOC: LBN 12:40
PROVIDERS: PCP Family Medicine; Visit Provider Obstetrics & Gynecology
DX: Z12.4 Encounter for screening for malignant neoplasm of cervix (principal)
CPT/HCPCS: 87491; 87591; 88142; 87624

== ENCOUNTER 2023-07-26 10:55 | Outpatient (REF) | payer BC, SELFPAY ==
--- NOTE | 2023-07-26 10:45 | ENDO_PTH ---
PATIENT: Sharon Miller LOC: [facility] U#:[id number] AGE/SX: 27/F ROOM: RE07/26/[address]: Rosita Darnell DO : 1995 BED: DIS: 07/26/2023 SPEC #: [id number] RECD: 07/26/23 13:14 STATUS: CAROLA REQ #: [id number] LAVERN: 07/26/23 10:[address]: Rosita Darnell DEPT: Surgical Specimen RECD BY: Allie Espinosa ENTERED: 07/26/23 13:15 SP TYPE: Endo OTHR DR: Andrei Vaz Tissues: 1 - ENDOCERVICAL BX/CURRETTE 2 - CERVICAL BIOPSY Procedures: GROSS AND MICRO LEVEL 4 IMMUNOPEROXIDASE STAIN Comments: [id number]
== END 2023-07-26 10:56 | disposition home or self-care (01) ==
LOC: LBN 10:55
PROVIDERS: PCP Family Medicine; Visit Provider Obstetrics & Gynecology
DX: N87.1 Moderate cervical dysplasia (principal); R87.613 High grade squamous intraepithelial lesion on cytologic smear of cervix (HGSIL)
CPT/HCPCS: 88305; 88361

== ENCOUNTER 2023-08-25 14:27 | Outpatient (REF) | payer BC, SELFPAY | END 2023-08-25 14:28 | disposition home or self-care (01) | LOC: LBN 14:27 | PROVIDERS: PCP Family Medicine; Visit Provider Physician Assistant Medical | DX: R50.9 Fever, unspecified (principal); R07.0 Pain in throat | CPT/HCPCS: 87070 ==

== ENCOUNTER 2023-09-25 05:38 | Outpatient (CLI) | payer BC, SELFPAY ==
[2023-09-25 14:21] LABS: Absolute Basophil Count 0.03 10^3/uL (0.0-0.2); Absolute Eosinophil Count 0.06 10^3/uL (0.0-0.7); Absolute Lymphocyte Count 1.69 10^3/uL (1.2-3.4); Absolute Monocyte Count 0.25 10^3/uL (0.1-0.8); Absolute Neutrophil Count 1.55 10^3/uL (1.2-6.7); Basophils % 0.8; Eosinophils % 1.7; HCT 38.6 % (36.0-46.0); Lymphocytes % 47.2; MCH 29.1 pg (27.0-33.0); MCHC 33.7 % (32.0-36.0); MCV 86 fL (80-95); Neutrophils % 43.3; Platelet Count 181 10^3/uL (130-400); RBC 4.47 10^6/uL (3.93-5.22); RDW 11.4 % (11.7-14.6); RDW-SD 36.1 fL; WBC 3.58 10^3/uL (4.4-10.8)
== END 2023-09-25 05:39 | disposition home or self-care (01) ==
LOC: LBO 05:38
PROVIDERS: PCP Family Medicine; Visit Provider Obstetrics & Gynecology
DX: Z01.818 Encounter for other preprocedural examination (principal)
CPT/HCPCS: 36415; 86850; 86900; 86901; 85025

== ENCOUNTER 2023-09-26 06:18 | Day surgery (SDC) | payer BC, SELFPAY ==
[2023-09-26] VITALS (9 sets, daily range): BP systolic 82–138; BP diastolic 43–80; PULSE 56–70; RESP 14–20; TEMP 36.2–36.6; O2SAT 98–100; BMI 21.6
[2023-09-26] MEDS: Lactated Ringers 1,000 ML 125 ML IV (06:59)
--- NOTE | 2023-09-26 07:05 | W.ANESPRE ---
General Info Date of Service Date Performed: 09/26/23 Height: 5 ft 8 in Weight: 64.6 kg Body Mass Index (BMI): 21.6 Surgical Procedure: Operation Date: 09/26/23 07:40 Proposed Procedure Side Surgeon stacy Branch [facility] Biopsy Rosita Darnell DO Meds Allergies and Home Medications Allergies Allergy/AdvReac Type Severity Reaction Status Date / Time No Known Allergies Allergy Verified 09/26/23 06:24 Home Medication Medication Instructions Recorded Unknown [No Known Home Meds] 09/25/23 Current Visit Medications: Current Medications Generic Name Dose Route Start Last Admin Trade Name Freq PRN Reason Stop Dose Admin Ringer's Solution 1,000 mls @ 125 mls/hr 09/26/23 06:00 09/26/23 06:59 IV 09/26/23 23:59 125 mls/hr INFUSION TEE Administration IV Miscellaneous Supplies 1 each 09/26/23 06:00 Iv Access IV 09/26/23 23:59 DIRECTED TEE Sodium Chloride 0 ml 09/26/23 06:00 Normal Saline Flush 10 Ml Syr IV 09/26/23 23:59 PRN PRN Sodium Chloride 0 ml 09/26/23 06:00 Normal Saline 10 Ml Vial IJ 09/26/23 23:59 DIRECTED PRN Sterile Water 0 ml 09/26/23 06:00 Water,Injection,Sterile 10 Ml Vial IJ 09/26/23 23:59 DIRECTED PRN PFSH Active Problems Active Problems: Problem Status Onset Code NAE II (cervical intraepithelial neoplasia II) N87.1 Sacroiliac joint pain M53.3 Labral tear of left hip joint S73.192A Low grade squamous intraepithelial lesion (LGSIL) on cervical Pap smear R87.612 Medical History Medical History Halitosis Tonsillolith Chronic tonsillitis Labral tear of right hip joint 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 Foote Hx of dilation and curettage Per pt. states medical Postoperative state Dilation and curettage with suction Hx of tonsillectomy 04/04/2021 Hx of wisdom tooth extraction Tobacco Smoking/Tobacco Use Status: Former Tobacco Use Alcohol Alcohol Intake: current Alcohol intake frequency: holidays/special occasions only Alcohol type: wine Substance Use Substance use: Occasionally Substance use type: marijuana Prental History History 1 Para 0 Hx # Term Pregnancies Multiple births Hx # Pregnancies Ectopic pregnancies AB induced 1 Hx Number of Living Children AB spontaneous Vital Signs and Lab Results Vital Signs Most Recent Vital Signs in EMR: Most Recent Vital Signs Temp Pulse Resp BP Pulse Ox 36.6 C 60 18 138/80 98 09/26/23 06:15 09/26/23 06:15 09/26/23 06:15 09/26/23 06:15 09/26/23 06:15 Point of Care Results Point of Care Results: POC- Test(urine) Negative 09/26/23 06:58 Lab Results Blood Type / Crossmatch: Antibody Screen NEGATIVE 09/25/23 Complete Blood Count: White Blood Count 3.58 10^3/uL (4.4-10.8) L 09/25/23 14:14 Red Blood Count 4.47 10^6/uL (3.93-5.22) 09/25/23 14:14 Hemoglobin 13.0 g/dL (11.2-15.7) 09/25/23 14:14 Hematocrit 38.6 % (36.0-46.0) 09/25/23 14:14 Platelet Count 181 10^3/uL (130-400) 09/25/23 14:14 Complete Metabolic Panel: No Data to Display Liver Function Panel: No Data to Display Coagulation Panel: No Data to Display Cardiac Panel: No Data to Display Arterial Blood Gas: No Data to Display Venous Blood Gas: No Data to Display Pancreas Panel: No Data to Display Thyroid Panel: No Data to Display Infectious Disease: No Data to Display Blood Cultures: No Data to Display Toxicology Panel: No Data to Display Panel: No Data to Display Anesthesia Assessment and Plan Anesthesia History Personal History: No History of Anesthesia Complications Family History: No Family History of Anesthesia Complications Exercise Tolerance Exercise Tolerance: Metabolic Equivalents>4 Pertinent Negatives Pertinent Negatives: No Symptoms of GERD, No Major Cardiovascular Symptoms or Complaints and No Major Pulmonary Symptoms or Complaints Cardiac & Pulmonary Exam Cardiac Exam: Normal S1/S2 Heart Sounds Pulmonary Exam: Clear Bilateral Breath Sounds Implantable Cardiac Device Does patient have a Pacemaker or an ICD?: No Airway Exam Known Difficult Airway: No Mallampati Class: 2 Mouth Opening: Normal (> 3cm) Thyromental Distance: Greater than 3 cm Neck Range of Motion: Full ROM Neck Circumference: Normal Teeth Condition: Normal Dentition ASA Classification ASA Score: ASA 2 Emergency Case?: No NPO Status NPO Status: NPO Clears >2 hours, Solids >8 hours Status Status: Negative HCG Anesthesia Plan Resuscitation Status: Full Code Anesthesia Technique: General Anesthesia Airway Planned: Natural Airway Monitors Used: Standard Monitors
--- NOTE | 2023-09-26 07:50 | CER_PTH ---
PATIENT: Sharon Miller LOC: [facility] U#:[id number] AGE/SX: 28/F ROOM: RE09/26/[address]: Rosita Darnell DO : 1995 BED: DIS: 09/26/2023 SPEC #: [id number] RECD: 09/26/23 12:52 STATUS: SOUDewayne REQ #: [id number] LAVERN: 09/26/23 07:[address]: Rosita Darnell DEPT: Surgical Specimen RECD BY: Allie Espinosa ENTERED: 09/26/23 12:53 SP TYPE: CER OTHR DR: Andrei Vaz Tissues: 1 - CERVICAL CONE BX Procedures: GROSS AND MICRO LEVEL 5 Comments: [id number]
--- NOTE | 2023-09-26 08:09 | W.PM.OP ---
Date of service: 09/26/23 Time of Service: 08:09 Operative Note Operative Note DATE OF PROCEDURE: 09/26/23 PRE-OP DIAGNOSIS: Severe cervical dysplasia, NAE-2 POST-OP DIAGNOSIS: same PROCEDURE: Loop electrocautery excisional procedure SURGEON: Rosita Dranell ANESTHESIA TYPE: General LMA/ETT Refer to Anesthesia Record ESTIMATED BLOOD LOSS: 5 PATHOLOGY: other (Cervical conization) COMPLICATIONS: None Patient was transported to: PACU Patient's condition: stable Indications: Severe cervical dysplasia Findings: Normal-appearing cervix Procedure Description: After full informed consent was obtained, patient was taken the operating suite with an IV running. Negative status verified. She had emptied her bladder prior to entry into the OR. She had pneumatic compression stockings for DVT prophylaxis. No antibiotics were warranted. She was placed in dorsal supine position and anesthesia administered via LMA. She was then placed in the modified dorsal lithotomy position in yellowfin stirrups and prepped and draped in the usual sterile fashion. Timeout was held. Speculum was inserted into the vaginal vault. Cervix identified. A medium loop was used to perform a cervical conization with electrocautery encompassing the entire transformation zone. Base of the excisional procedure was then cauterized and Monsel solution placed. Conization base is hemostatic. Patient was taken to the postanesthesia care unit in stable condition. EBL: 5 mL Fluids: Crystalloid per anesthesia Complications: None apparent Pathology: Cervical conization
[2023-09-26] MEDS: ePHEDrine 25 MG/5 ML Syringe IVP (08:18)
--- NOTE | 2023-09-26 09:26 | W.ANESPOSTOP ---
Postoperative Evaluation Date, Time and Location Date Performed: 09/26/23 Time Performed: 09:26 Patient Location: Day Surgery Unit Vital Signs Most Recent Imported Vital Signs: Most Recent Vital Signs Temp Pulse Resp BP Pulse Ox 36.3 C L 70 18 103/60 100 09/26/23 08:50 09/26/23 08:50 09/26/23 08:50 09/26/23 08:50 09/26/23 08:50 Pain Score Most Recent Pain Score: Most Recent Pain Score Pain Level 5 09/26/23 08:50 Assessment Mental Status: Awake (Alert & Oriented to Patient Baseline) Airway and Respiratory Function: Patent airway with normal (patient baseline) respiratory exam Cardiovascular Function: Hemodynamically Stable Hydration Status: Adequately Hydrated Nausea & Vomiting: No Nausea or Vomiting Pain: Pt. Denies Any Pain Peripheral Nerve Block: Patient did not receive a nerve block
[2023-09-26] MEDS: Ketorolac 15 MG/ML VIAL IVP (09:40)
== END 2023-09-26 09:55 | disposition home or self-care (01) ==
PROVIDERS: PCP Family Medicine; Visit Provider Obstetrics & Gynecology
PROC: 0UBC7ZZ Excision of Cervix, Via Natural or Artificial Opening (ICD-10-PCS; CPT 57522; principal; 2023-09-26 07:30)
DX: N87.1 Moderate cervical dysplasia (principal)
CPT/HCPCS: 57522; 81025; 88307; J1100; J1885; J2001; J2250; J2405; J2704; J3010

== ENCOUNTER 2024-01-07 23:51 | Outpatient (REF) | payer BC, SELFPAY ==
[2024-01-07 20:12] LABS: Iron 109 ug/dL (50-170); Total Iron Binding Capacity 379 ug/dL (250-450); Transferrin Sat 29 % (15-50)
[2024-01-07 21:21] LABS: Ferritin 50 ng/mL (8-252)
== END 2024-01-07 23:52 | disposition home or self-care (01) ==
LOC: NCHCN 23:51
PROVIDERS: PCP Family Medicine; Visit Provider Nurse Practitioner Family
DX: R53.83 Other fatigue (principal); D64.9 Anemia, unspecified
CPT/HCPCS: 82728; 83540; 83550

== ENCOUNTER 2024-04-03 15:10 | Outpatient (REF) | payer BC, SELFPAY ==
[2024-04-03 20:02] LABS: ALT 19 U/L (14-59); AST 20 U/L (15-37); Albumin 4.4 g/dL (3.4-5.0); Alkaline Phosphatase 41 U/L (46-116); Anion Gap 8.8 mmol/L (3-11); BUN 10 mg/dL (7-18); Bilirubin, Total 0.45 mg/dL (0.2-1.0); CO2 30.2 mmol/L (21.0-32.0); CREATININE 0.7 mg/dL (0.55-1.02); Calcium 9.6 mg/dL (8.5-10.1); Chloride 104 mmol/L (98-107); Estimated GFR 119.99 (mL/min/1.73m2); Glucose 80 mg/dL (74-106); Sodium 143 mmol/L (136-145); TSH (W/Ref FT4) 0.96 uIU/mL (0.36-3.74); Total Protein 7.6 g/dL (6.4-8.2); Vitamin B12 472 pg/mL (193-986); Vitamin D 25 Total 21.5 ng/mL (30-100)
== END 2024-04-03 15:11 | disposition home or self-care (01) ==
LOC: NCHCN 15:10
PROVIDERS: PCP Nurse Practitioner Family; Visit Provider Nurse Practitioner Family
DX: R53.83 Other fatigue (principal)
CPT/HCPCS: 80053; 82306; 82607; 84443

== ENCOUNTER 2024-04-08 02:56 | Outpatient (CLI) | payer BC, SELFPAY ==
--- NOTE | 2024-04-08 | DI.RAD_ITS ---
Exam(s) XR LUMBAR SPINE COMPLETE EXAM: XR LUMBAR SPINE COMPLETE CLINICAL HISTORY: Chronic back pain > 3 mos, G89.29. TECHNIQUE: 2D digital imaging was performed. Five views. COMPARISON: No exams were available for comparison FINDINGS: BONES: No fracture or destructive lesion. Vertebral body heights are maintained. No facet hypertro phy identified . DISKS: Intervertebral disc spaces are maintained. ALIGNMENT: Lumbar spinal alignment is within normal limits. SOFT TISSUE: Normal. IMPRESSION: Unremarkable radiographs of the lumbar spine. DATA REPOSITORY: RADIATION DOSE DELIVERED:
--- NOTE | 2024-04-08 | DI.RAD_ITS ---
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 TECHNIQUE: 2D digital imaging was performed. Three views. COMPARISON: No exams were available for comparison FINDINGS: BONES: No acute fracture is present. No bony destructive lesion is seen. JOINTS: The knee is normally aligned. No joint effusion is seen. Joint spaces are maintained. SOFT TISSUE: Normal. IMPRESSION: Normal radiographs of the left knee. DATA REPOSITORY: RADIATION DOSE DELIVERED:
--- NOTE | 2024-04-08 11:17 | DI.RAD_ITS ---
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 TECHNIQUE: 2D digital imaging was performed. Three views. COMPARISON: CR XR HIP RT COMPLETE AP PELVIS from 10/15/2020 MR PELVIS ADULT from 09/12/2021 FINDINGS: BONES: No acute fracture is present. No bony destructive lesion is seen. JOINTS: The hip joint spaces are.. SI joints and pubic symphysis are unremarkable. SOFT TISSUE: Normal. IMPRESSION: Unremarkable radiographs of the bilateral hips. DATA REPOSITORY: RADIATION DOSE DELIVERED:
== END 2024-04-08 03:16 ==
PROVIDERS: PCP Nurse Practitioner Family; Visit Provider Nurse Practitioner Family
DX: M25.552 Pain in left hip (principal); G89.29 Other chronic pain; M25.562 Pain in left knee
CPT/HCPCS: 73521; 73562; 72110

== ENCOUNTER 2024-04-08 10:00 | Outpatient (REF) | payer BC, SELFPAY ==
--- NOTE | 2024-04-08 10:00 | PAPFT_PTH ---
PATIENT: Sharon Miller LOC: [facility] U#:[id number] AGE/SX: 28/F ROOM: RE04/08/[address]: Rosita Darnell DO : 1995 BED: DIS: 04/08/2024 SPEC #: [id number] RECD: 04/08/24 13:00 STATUS: CAROLA REQ #: [id number] LAVERN: 04/08/24 10:[address]: Rosita Darnell DEPT: [facility] Cytology RECD BY: Allie Espinosa ENTERED: 04/08/24 13:00 SP TYPE: PAPFT VINEET DR: PRAVEENA KOO NP Tissues: 1 - CX/ENDOCX FOR PAP SMEARS Procedures: PAP THIN PREP/[facility] Screening HPV DNA PROBE Comments: [id number] (HPV 16 & 18/45)
== END 2024-04-08 10:01 | disposition home or self-care (01) ==
LOC: LBN 10:00
PROVIDERS: PCP Nurse Practitioner Family; Visit Provider Obstetrics & Gynecology
DX: Z12.4 Encounter for screening for malignant neoplasm of cervix (principal)
CPT/HCPCS: 88142; 87624

== ENCOUNTER 2024-04-17 12:27 | Outpatient (CLI) | payer BC, SELFPAY ==
--- NOTE | 2024-04-17 | DI.RAD_ITS ---
Exam(s) XR CHEST 2V PA LATERAL EXAM: XR CHEST 2V PA LATERAL CLINICAL HISTORY: COUGH R05.9. TECHNIQUE: 2D digital imaging was performed. COMPARISON: No exams were available for comparison FINDINGS: 2 views: Heart size is normal. The mediastinum is not widened. Lungs are clear. No infiltrates nor pleural effusions. IMPRESSION: No acute pulmonary findings. DATA REPOSITORY: RADIATION DOSE DELIVERED:
== END 2024-04-17 12:47 ==
LOC: DI 12:28
PROVIDERS: PCP Nurse Practitioner Family; Visit Provider Nurse Practitioner Family
DX: R05.9 Cough, unspecified (principal)
CPT/HCPCS: 71046

== ENCOUNTER 2024-05-15 14:39 | Outpatient (REF) | payer BC, SELFPAY ==
--- NOTE | 2024-05-15 14:30 | ENDO_PTH ---
PATIENT: Sharon Miller LOC: [facility] U#:[id number] AGE/SX: 28/F ROOM: RE05/15/[address]: Rosita Darnell DO : 1995 BED: DIS: 05/15/2024 SPEC #: [id number] RECD: 05/15/24 17:04 STATUS: CAROLA REQ #: [id number] LAVERN: 05/15/24 14:[address]: Rosita Darnell DEPT: Surgical Specimen RECD BY: Allie Espinosa ENTERED: 05/15/24 17:04 SP TYPE: Endo OTHR DR: PRAVEENA KOO NP Tissues: 1 - ENDOCERVICAL BX/CURRETTE Procedures: GROSS AND MICRO LEVEL 4 Comments: [id number]
== END 2024-05-15 14:40 | disposition home or self-care (01) ==
LOC: LBN 14:39
PROVIDERS: PCP Nurse Practitioner Family; Visit Provider Obstetrics & Gynecology
DX: D26.0 Other benign neoplasm of cervix uteri (principal)
CPT/HCPCS: 88305

== ENCOUNTER 2024-06-10 02:49 | Outpatient (CLI) | payer BC, SELFPAY ==
--- NOTE | 2024-06-10 07:00 | DI.MRI_ITS ---
Exam(s) MR LUMBAR SPINE WO EXAM: MR LUMBAR SPINE WO CLINICAL HISTORY: low back pain to lt knee,lumbar radiculitis,spondylosis,m54.59,m47.816,. TECHNIQUE: Multiplanar multisequence MRI of the Lumbar spine was performed. COMPARISON: CR XR LUMBAR SPINE COMPLETE from 04/08/2024 CR XR CHEST 2V PA LATERAL from 04/17/2024 FINDINGS: Bones: The last intervertebral disc space is designated the L5/S1 level for the numbering purpose of this ex amination. The vertebral body heights are well maintained. Alignment: Unremarkable. The marrow signal characteristics are unremarkable. Cord: The conus tip ends at the T12 level. It is of normal size and signal intensity. T12-L1: No focal disc herniation is present. No central spinal canal stenosis.No neural foraminal st enosis. L1-2: No focal disc herniation is present. No central spinal canal stenosis.No neural foraminal sten osis. L2-3: No focal disc herniation is present. No central spinal canal stenosis.No neural foraminal ash nosis. L3-4: No focal disc herniation is present. No central spinal canal stenosis.No neural foraminal ash nosis. L4-5: No focal disc herniation is present. No central spinal canal stenosis.No neural foraminal sten osis. L5-S1: No focal disc herniation is present. No central spinal canal stenosis.No neural foraminal st enosis. The visualized SI joints and sacrum are unremarkable. Soft tissues: The paraspinal soft tissues are unremarkable. IMPRESSION: Normal MRI of the lumbar spine. No evidence of disc herniation or significant degenerative changes. DATA REPOSITORY:
== END 2024-06-10 03:09 ==
LOC: DI 02:49
PROVIDERS: PCP Nurse Practitioner Family; Visit Provider Anesthesiology Pain Medicine
DX: M47.816 Spondylosis without myelopathy or radiculopathy, lumbar region
CPT/HCPCS: 72148

== ENCOUNTER 2024-10-10 13:10 | Outpatient (REF) | payer BC, SELFPAY ==
--- NOTE | 2024-10-10 13:00 | PAPFT_PTH ---
PATIENT: Sharon Miller LOC: [facility] U#:[id number] AGE/SX: 29/F ROOM: RE10/10/[address]: Rosita Darnell DO : 1995 BED: DIS: 10/10/2024 SPEC #: [id number] RECD: 10/10/24 13:13 STATUS: CAROLA REQ #: [id number] LAVERN: 10/10/24 13:[address]: Rosita Darnell DEPT: [facility] Cytology RECD BY: Allie Espinosa ENTERED: 10/10/24 13:13 SP TYPE: PAPFT VINEET DR: PRAVEENA KOO NP Tissues: 1 - CX/ENDOCX FOR PAP SMEARS Procedures: PAP THIN PREP/[facility] Screening HPV DNA PROBE Comments: [id number] (HPV 16 & 18/45)
== END 2024-10-10 13:11 | disposition home or self-care (01) ==
LOC: LBN 13:10
PROVIDERS: PCP Nurse Practitioner Family; Visit Provider Obstetrics & Gynecology
DX: Z12.4 Encounter for screening for malignant neoplasm of cervix (principal); C44.92 Squamous cell carcinoma of skin, unspecified
CPT/HCPCS: 88142; 87624

== ENCOUNTER 2024-11-20 14:32 | Outpatient (REF) | payer BC, SELFPAY ==
--- NOTE | 2024-11-19 14:20 | ENDO_PTH ---
PATIENT: Sharon Miller LOC: [facility] U#:[id number] AGE/SX: 29/F ROOM: RE11/20/[address]: Rosita Darnell DO : 1995 BED: DIS: 11/20/2024 SPEC #: [id number] RECD: 11/20/24 17:25 STATUS: CAROLA REQ #: [id number] LAVERN: 11/19/24 14:[address]: Rosita Darnell DEPT: Surgical Specimen RECD BY: Allie Espinosa ENTERED: 11/20/24 17:26 SP TYPE: Endo OTHR DR: PRAVEENA KOO NP Tissues: 1 - ENDOCERVICAL BX/CURRETTE Procedures: GROSS AND MICRO LEVEL 4 Comments: [id number]
== END 2024-11-20 14:33 | disposition home or self-care (01) ==
LOC: LBN 14:32
PROVIDERS: PCP Nurse Practitioner Family; Visit Provider Obstetrics & Gynecology
DX: N84.1 Polyp of cervix uteri (principal)
CPT/HCPCS: 88305

== ENCOUNTER 2025-01-07 14:53 | Outpatient (REF) | payer BC, SELFPAY ==
[2025-01-07 15:32] LABS: Glucose Negative (Negative)
[2025-01-07 15:42] LABS: C & S Indicated? Yes; RBC Negative HPF (0-2)
== END 2025-01-07 14:54 | disposition home or self-care (01) ==
LOC: NCHCN 14:53
PROVIDERS: PCP Nurse Practitioner Family; Visit Provider Nurse Practitioner Family
DX: R39.15 Urgency of urination (principal)
CPT/HCPCS: 81003; 81015; 87086